=== PATIENT | female | born 1970 | race Caucasian/White ===

== ENCOUNTER 2016-12-16 16:34 | Emergency (ER) | payer MEDICAID ==
[~2016-12-16 16:34] MED LIST: CLEOCIN HCL300 MG PO; GLUCOPHAGE500 MG PO; HYDROCODONE-APA1 TAB PO; KEFLEX500 MG PO; LEVAQUIN 5500 MG/100 PO
[2016-12-16 17:49] LABS: BASOPHILS 0.4 % (0-2); EOSINOPHILS 1.1 % (0-7); HEMATOCRIT 42.6 % (36.0-48.0); HEMOGLOBIN 14.2 g/dL (12-16); IMMATURE GRANULOCYTES 0.3 % (0-5); LYMPHOCYTES 31.5 % (15-50); MCH 32.2 pg (26.0-34.0); MCHC 33.3 g/dL (31.0-37.0); MCV 96.6 fL (80.0-100.0); MONOCYTES 4.6 % (2-11); NEUTROPHILS 62.1 % (40-80); PLATELET COUNT 431 10x3/uL (130-400); RBC 4.41 10x6/uL (4.00-5.40)
[2016-12-16 17:56] LABS: INR 0.88 (0.85-1.17); PROTIME 11.8 SECONDS (11.6-15.0)
[2016-12-16 17:56] LABS: UDS - AMPHET NEGATIVE QUAL (NEGATIVE); UDS - BARB NEGATIVE QUAL (NEGATIVE); UDS - BENZO NEGATIVE QUAL (NEGATIVE); UDS - COCAINE NEGATIVE QUAL (NEGATIVE); UDS - OPIATE NEGATIVE QUAL (NEGATIVE); UDS - PCP NEGATIVE QUAL (NEGATIVE); UDS - THC NEGATIVE QUAL (NEGATIVE)
[2016-12-16 18:08] LABS: ALBUMIN 3.1 g/dL (3.4-5.0); ALKALINE PHOSPHATASE 210 U/L (46-116); ALT (SGPT) 303 U/L (10-68); BILIRUBIN - TOTAL 0.28 mg/dL (0.2-1.3); CARBON DIOXIDE 28.6 mmol/L (21.0-32.0); CHLORIDE - SERUM 95 mmol/L (98-107); CREATININE - SERUM 0.9 mg/dL (0.6-1.3); POTASSIUM - SERUM 4.3 mmol/L (3.5-5.1); PROTEIN - SERUM 7.9 g/dL (6.4-8.2); SODIUM 130 mmol/L (136-145); UREA NITROGEN 5 mg/dL (7-18); eGFR NON AFRICAN AMERICAN 72 mL/min (90-120)
[2016-12-16 18:16] LABS: CALC OSMOLALITY 285 mosm/kg (275-300); TROPONIN-I < 0.017 ng/mL (0.000-0.060)
[2016-12-16 18:21] LABS: APPEARANCE CLEAR (CLEAR); BILIRUBIN NEGATIVE (NEGATIVE); COLOR YELLOW (YELLOW); GLUCOSE 1000 mg/dL (NEGATIVE); KETONE NEGATIVE (NEGATIVE); NITRITE NEGATIVE (NEGATIVE); PROTEIN NEGATIVE (NEGATIVE); UROBILINOGEN NORMAL (NORMAL)
[2016-12-16 18:22] LABS: BACTERIA MODERATE /hpf (NONE SEEN); EPITHELIAL CELLS 0-5 /hpf (0-5); RED CELLS - URINE 0-5 /hpf (0-5)
[2016-12-16 18:25] LABS: GLUCOSE 611 mg/dL (74-106)
[2016-12-16 18:34] LABS: KETONE - SERUM NEGATIVE (NEGATIVE)
== END 2016-12-17 00:40 | disposition home or self-care (01) ==
LOC: D.ER 16:34
PROVIDERS: Emergency Medicine; Nurse Practitioner Family
DX: E11.65 Type 2 diabetes mellitus with hyperglycemia (principal); Z79.4 Long term (current) use of insulin; Z91.14 Patient's other noncompliance with medication regimen; E11.40 Type 2 diabetes mellitus with diabetic neuropathy, unspecified; R51 Headache

== ENCOUNTER 2017-01-04 13:26 | Inpatient (IN) | payer MEDICAID ==
[2017-01-04 15:58] LABS: HEMATOCRIT 41.9 % (36.0-48.0); HEMOGLOBIN 14.2 g/dL (12-16); MCH 32.5 pg (26.0-34.0); MCHC 33.9 g/dL (31.0-37.0); MCV 95.9 fL (80.0-100.0); MEAN PLATELET VOLUME 10.2 fL (7.4-10.4); PLATELET COUNT 562 10x3/uL (130-400); RBC 4.37 10x6/uL (4.00-5.40); RDW 12.7 % (11.5-14.5); WBC 22.1 10x3/uL (4.8-10.8)
[2017-01-04 16:26] LABS: ALBUMIN 2.6 g/dL (3.4-5.0); ANION GAP 15.3 mmol/L (8-16); BILIRUBIN - TOTAL 0.52 mg/dL (0.2-1.3); CALCIUM 9.4 mg/dL (8.5-10.1); CARBON DIOXIDE 26.7 mmol/L (21.0-32.0); CREATININE - SERUM 0.9 mg/dL (0.6-1.3); PROTEIN - SERUM 8.6 g/dL (6.4-8.2)
[2017-01-04 16:31] LABS: EOSINOPHILS 4 % (0-7); LYMPHOCYTES 32 % (15-50); MONOCYTES 2 % (2-11); NEUTROPHILS 62 % (40-80); PLATELET ESTIMATE INCREASED
[2017-01-04 20:00] VITALS: BP 137/86
--- NOTE | 2017-01-04 21:05 | NUR ---
RECIEVED PT TO FLOOR FROM ED VIA WHEELCHAIR. PT TRANSFERRED SELF TO BED. ALERT AND ORIENTED AND ABLE TO VERBALIZE NEEDS. IV IS PATENT AND SALINE LOC AT THIS TIME. PT IS AMBULATORY BUT WAS INSTRUCTED TO CALL FOR ANY ASSISTANCE NEEDED. DRESSING TO RIGHT ELBOW C/D/I. PT STATES PAIN IS 10/10. PT IS ORIENTED TO ROOM AND USE OF CALL LIGHT. NO NEEDS ARE VERBALIZED AT THIS TIME. WILL CONTINUE TO MONITOR. SIDE RAILS ARE UP X 1. BED IS IN LOWEST POSITION. CALL LIGHT IS WITHIN REACH.
--- NOTE | 2017-01-04 22:32 | NUR ---
ADMIT ASSESSMENT COMPLETED. FLUIDS HOOKED UP PER ORDER. PT RECIEVED 12 UNITS INSULIN PER SLIDING SCALE FOR DKIL=399. NO NEEDS ARE VOICED. WILL MONITOR. SIDE RAILS X 1. BED LOW. CALL LIGHT IN REACH.
[2017-01-04 23:57] VITALS: BP 133/76
[2017-01-05 00:30] VITALS: BP 133/76; BMI 24.8
[2017-01-05 04:00] VITALS: BP 122/69
[2017-01-05 08:15] VITALS: BP 112/76
[2017-01-05 10:33] LABS: BASOPHILS 0.6 % (0-2); EOSINOPHILS 3.5 % (0-7); HEMATOCRIT 36.7 % (36.0-48.0); IMMATURE GRANULOCYTES 0.4 % (0-5); LYMPHOCYTES 29.3 % (15-50); MCH 31.7 pg (26.0-34.0); MCHC 32.7 g/dL (31.0-37.0); MCV 96.8 fL (80.0-100.0); MONOCYTES 8.1 % (2-11); NEUTROPHILS 58.1 % (40-80); PLATELET COUNT 520 10x3/uL (130-400); RBC 3.79 10x6/uL (4.00-5.40)
[2017-01-05 10:38] LABS: CALC OSMOLALITY 288 mosm/kg (275-300); CALCIUM 8.7 mg/dL (8.5-10.1); CARBON DIOXIDE 30.3 mmol/L (21.0-32.0); CHLORIDE - SERUM 102 mmol/L (98-107); CREATININE - SERUM 0.7 mg/dL (0.6-1.3); POTASSIUM - SERUM 3.7 mmol/L (3.5-5.1); SODIUM 139 mmol/L (136-145); UREA NITROGEN 9 mg/dL (7-18); eGFR NON AFRICAN AMERICAN > 90 mL/min (90-120)
[2017-01-05 10:42] LABS: GLUCOSE 316 mg/dL (74-106)
[2017-01-05 10:57] VITALS: BMI 24.0
[2017-01-05 10:57] LABS: WBC 13.6 10x3/uL (4.8-10.8)
[2017-01-05 11:57] VITALS: BP 123/80
--- NOTE | 2017-01-05 12:01 | NUR ---
PT LYING IN BED WITH NO FAMILY AT SIDE DR HAS REMOVED DRESSING AND EXPOSED ABCESS DRESSING TO BE CHANGED AT PER THIS NURSE.
[2017-01-05 16:51] VITALS: BP 118/79
[2017-01-05 18:17] LABS: HEMOGLOBIN A1C 13.3 % (4.8-6.0)
--- NOTE | 2017-01-05 19:30 | NUR ---
RECIEVED SHIFT REPORT. PT IS LYING IN BED. ALERT AND ORIENTED AND ABLE TO VERBALIZE NEEDS. IV IS PATENT AND FLUIDS ARE RUNNING PER ORDER. PT IS AMBULATORY BUT WAS INSTRUCTED TO CALL FOR ANY ASSISTANCE NEEDED. DRESSING TO RIGHT ELBOW C/D/I. PT STATES PAIN IS 10/10. NO NEEDS ARE VERBALIZED AT THIS TIME. WILL CONTINUE TO MONITOR. SIDE RAILS ARE UP X 2. BED IS IN LOWEST POSITION. CALL LIGHT IS WITHIN REACH.
--- NOTE | 2017-01-05 20:43 | NUR ---
SHIFT ASSESSMENT COMPLETED. ANTIBIOTIC HUNG PER ORDER. PT RECIEVED 10 UNITS INSULIN PER SLIDING SCALE FOR QLPD=015. SNACK PROVIDED. NO NEEDS ARE VOICED. WILL MONITOR. SIDE RAILS X 2. BED LOW. CALL LIGHT IN REACH.
[2017-01-05 21:30] VITALS: BP 174/89
[2017-01-06 00:26] VITALS: BP 117/73
[2017-01-06 04:44] VITALS: BP 115/75
[2017-01-06 07:39] LABS: BASOPHILS 0.7 % (0-2); EOSINOPHILS 5.1 % (0-7); HEMATOCRIT 36.1 % (36.0-48.0); HEMOGLOBIN 11.5 g/dL (12-16); IMMATURE GRANULOCYTES 0.3 % (0-5); LYMPHOCYTES 39.2 % (15-50); MCH 31.3 pg (26.0-34.0); MCHC 31.9 g/dL (31.0-37.0); MCV 98.1 fL (80.0-100.0); MEAN PLATELET VOLUME 9.7 fL (7.4-10.4); MONOCYTES 7.6 % (2-11); NEUTROPHILS 47.1 % (40-80); PLATELET COUNT 512 10x3/uL (130-400); RBC 3.68 10x6/uL (4.00-5.40); RDW 12.9 % (11.5-14.5); WBC 11.8 10x3/uL (4.8-10.8)
[2017-01-06 07:52] LABS: ALBUMIN 1.9 g/dL (3.4-5.0); ALKALINE PHOSPHATASE 151 U/L (46-116); ALT (SGPT) 96 U/L (10-68); CALC OSMOLALITY 290 mosm/kg (275-300); CALCIUM 8.8 mg/dL (8.5-10.1); CARBON DIOXIDE 29.4 mmol/L (21.0-32.0); CHLORIDE - SERUM 104 mmol/L (98-107); CREATININE - SERUM 0.7 mg/dL (0.6-1.3); GLUCOSE 346 mg/dL (74-106); POTASSIUM - SERUM 3.7 mmol/L (3.5-5.1); PROTEIN - SERUM 6.4 g/dL (6.4-8.2); SODIUM 139 mmol/L (136-145); UREA NITROGEN 11 mg/dL (7-18); VANCOMYCIN - TROUGH 7.6 ug/mL (10.0-20.0); eGFR NON AFRICAN AMERICAN > 90 mL/min (90-120)
--- NOTE | 2017-01-06 07:54 | NUR ---
Patient Name: GILBERT VERA Admission Status: ER Accout number: [id number] Admission Date: 01-04-2017 : 1970 Admission Diagnosis: Attending: CHHAYA ALVARES Current LOS: 2 Anticipated DC Date: 01-08-2017 Planned Disposition: Home Primary Insurance: [place] PRIVATE OPTIONS [place] Discharge Planning Comments: CM MET WITH PATIENT REGARDING D/C NEEDS AND PLANS. PATIENT STATED SHE LIVES ALONE AND DOES NOT KNOW WHO WILL DRIVE HER HOME AT DISCHARGE AT THIS TIME. PATIENT STATED THERE ARE NO STEPS OR STAIRS AT HER HOME. PATIENT STATED SHE IS INDEPENDENT WITH HER CARE AND HAS A GLUCOMETER AT HOME AND CHECKS WHEN SHE FEELS LIKE IT -MOST OF THE TIME EVERY OTHER DAY. PATIENT DOES NOT HAVE A PCP AND USES [facility] [address]. PATIENT REFUSING HOME HEALTH AT THIS TIME. CM WILL CONTINUE TO FOLLOW PATIENT WITH D/C NEEDS AND PLANS. PCP NONE [facility] [address]- [phone] VERONICA GARDNER (FRIEND) [phone] Shoes Hand Sewer: Kristyn Pierce Is the patient Alert and Oriented? Yes 0 * How many steps to enter\exit or inside your home? 0 0 * PCP NONE 0 * Pharmacy [facility] [address] 0 * Preadmission Environment Home Alone 0 * ADLs Independent 0 * Equipment Glucometer 0 * List name and contact numbers for known caregivers / representatives who currently or will assist patient after discharge: VERONICA GARDNER (FRIEND) [phone] 0 * Community resources currently utilized None 0 * Additional services required to return to the preadmission environment? Yes 0 * Can the patient safely return to the preadmission environment? Yes 0 * Has this patient been hospitalized within the prior 30 days at any hospital? No 0 Grand Total: 0
[2017-01-06 08:06] VITALS: BP 128/69
--- NOTE | 2017-01-06 09:43 | NUR ---
PT VANCOMYCIN TROUGH WAS 7.6. GIVEN HER AGE AND GOOD RENAL FUNCTION I WILL BUMP THE DOSE UP TO 750 MG Q8H. WILL GET ANOTHER TROUGH TO VERIFY DOSING CHANGE 01/07 PRIOR TO THE 1600 DOSE.
--- NOTE | 2017-01-06 10:36 | NUR ---
IV started in left forearm, 22 gauge x 1 attempt for saline lock. Dominga Chamorro RN
[2017-01-06 12:27] VITALS: BP 160/86
[2017-01-06 13:37] LABS: HEMOGLOBIN A1C 13.6 % (4.8-6.0)
[2017-01-06 15:53] VITALS: BP 160/77
[2017-01-06 20:00] VITALS: BP 183/83
[2017-01-07] VITALS: BP 180/86
--- NOTE | 2017-01-07 02:00 | NUR ---
PT IN BED WITH NO DISTRESS. RESPIRATIONS EVEN AND UNLABORED. SIDE RAILS X 1. BED LOW. CALL LIGHT IN REACH.
[2017-01-07 05:41] LABS: BASOPHILS 0.7 % (0-2); EOSINOPHILS 4.3 % (0-7); HEMATOCRIT 38.3 % (36.0-48.0); HEMOGLOBIN 12.5 g/dL (12-16); IMMATURE GRANULOCYTES 0.4 % (0-5); LYMPHOCYTES 45.9 % (15-50); MCH 31.7 pg (26.0-34.0); MCHC 32.6 g/dL (31.0-37.0); MCV 97.2 fL (80.0-100.0); MEAN PLATELET VOLUME 9.6 fL (7.4-10.4); MONOCYTES 6.5 % (2-11); NEUTROPHILS 42.2 % (40-80); PLATELET COUNT 528 10x3/uL (130-400); RBC 3.94 10x6/uL (4.00-5.40); RDW 12.9 % (11.5-14.5); WBC 13.8 10x3/uL (4.8-10.8)
[2017-01-07 06:13] LABS: ALBUMIN 2.3 g/dL (3.4-5.0); ALKALINE PHOSPHATASE 159 U/L (46-116); BILIRUBIN - TOTAL 0.15 mg/dL (0.2-1.3); CALCIUM 8.7 mg/dL (8.5-10.1); CARBON DIOXIDE 29.3 mmol/L (21.0-32.0); CHLORIDE - SERUM 101 mmol/L (98-107); CREATININE - SERUM 0.6 mg/dL (0.6-1.3); PROTEIN - SERUM 6.9 g/dL (6.4-8.2); SODIUM 138 mmol/L (136-145); UREA NITROGEN 12 mg/dL (7-18); eGFR NON AFRICAN AMERICAN > 90 mL/min (90-120)
[2017-01-07 06:22] LABS: CALC OSMOLALITY 285 mosm/kg (275-300); GLUCOSE 286 mg/dL (74-106); POTASSIUM - SERUM 4.6 mmol/L (3.5-5.1)
[2017-01-07 06:23] LABS: ALT (SGPT) 147 U/L (10-68)
--- NOTE | 2017-01-07 07:53 | NUR ---
REC'D IN BED WITH EYES CLOSED EASILY AROUSED WHEN NAME IS CALLED. RESP EVEN AND UNLABORED WITH NO DISTRESS NOTED. CAN EXPRESS NEEDS AND WANTS. ASSESSMENT COMPLETED. WILL CONTINUE TO OBSERVE OR NEEDS. C/L IN REACH AT BEDSIDE.
--- NOTE | 2017-01-07 08:00 | NUR ---
RESTING WITHOUT SIGNS OF DISTRESS.CALL LIGHT IN REACH
[2017-01-07 08:16] VITALS: BP 174/93
[2017-01-07 12:33] VITALS: BP 183/82
--- NOTE | 2017-01-07 14:44 | NUR ---
PT OFF FLOOR TO OR AT THIS TIME VIA STRETCHER. NO C/O NOTED UPON DEPARTURE. C/L IN REACH AT BEDSIDE.
--- NOTE | 2017-01-07 15:10 | NUR ---
NUTRITION F/U PT CURRENTLY NPO FOR PROCEDURE. WILL PROVIDE DIET WHEN RESUMED, HONOR FOOD PREFERENCES. RD FOLLOWING
[2017-01-07 15:21] LABS: HCG SERUM NEGATIVE (NEGATIVE)
[2017-01-07 17:27] VITALS: BP 139/90
--- NOTE | 2017-01-07 17:31 | NUR ---
RETURN FROM RECOVERY TO ROOM 2240 AWAKE AND ALERT. RESP EVEN AND UNLABORED WITH NO DISTRESS NOTED HAS O2 IN USE VIA N/C @ 3 L/M. PT IS IN STABLE CONDITION UPON RETURN ASKING FOR DINNER TRAY AND WAS SITTING STRAIGHT UP IN BED. WILL CONTINUE TO OBSERVE FOR NEEDS. C/L IN REACH AT BEDSIDE.
--- NOTE | 2017-01-07 20:16 | NUR ---
PT NEEDS TO HAVE BLOOD DRAWN FOR VANC TROUGHS. NURA IN LAB UNABLE TO FIND SUITABLE VEIN FOR REDRAW. PT VERBALIZED DEPRESSED UNABLE TO GET OF OF ROOM. SAT AND TALKED TO PT A WHILE UNTIL PT CALM AND COMFORTABLE CONTINUE WITH PLAN OF CARE
--- NOTE | 2017-01-07 23:18 | NUR ---
PT COMPLAINED OF PAIN IN IV SITE, UNABLE OT FLUSH OF REDRAW, REASSESS PT'IV SIT SI SWOLLEN AND RED, PT NEEDS NEW IV. REFUSED TO HAVE AN IV RESTATRTED TONIGHT.STATED LAB UNABLE TO FIND A VEIN WANTED VASCULAR NURSE TO ACESS NEW SITE FOR IV
[2017-01-08] VITALS: BP 129/76
[2017-01-08 04:00] VITALS: BP 153/77
--- NOTE | 2017-01-08 04:57 | NUR ---
ASSESSED, PT IS ASLEEP WITH O2 ORDERED AND EASY RESPIRATIONS NOTED. THE BED IS LOW, RAILS UP X'S 2 WITH THE CALL LIGHT AT HAND.
[2017-01-08 06:57] LABS: BASOPHILS 0.3 % (0-2); EOSINOPHILS 2.9 % (0-7); HEMATOCRIT 37.1 % (36.0-48.0); HEMOGLOBIN 11.9 g/dL (12-16); IMMATURE GRANULOCYTES 0.3 % (0-5); LYMPHOCYTES 35.5 % (15-50); MCH 31.5 pg (26.0-34.0); MCHC 32.1 g/dL (31.0-37.0); MCV 98.1 fL (80.0-100.0); MONOCYTES 6.2 % (2-11); NEUTROPHILS 54.8 % (40-80); PLATELET COUNT 546 10x3/uL (130-400); RBC 3.78 10x6/uL (4.00-5.40); WBC 14.9 10x3/uL (4.8-10.8)
--- NOTE | 2017-01-08 07:00 | NUR ---
PATIENT IN BED RESTING QUIETLY. IV INTACT. CALL LIGHT WITHIN REACH.
[2017-01-08 07:24] LABS: ALBUMIN 2.2 g/dL (3.4-5.0); ALKALINE PHOSPHATASE 138 U/L (46-116); ALT (SGPT) 143 U/L (10-68); CALC OSMOLALITY 284 mosm/kg (275-300); CALCIUM 9.1 mg/dL (8.5-10.1); CARBON DIOXIDE 32.5 mmol/L (21.0-32.0); CHLORIDE - SERUM 101 mmol/L (98-107); CREATININE - SERUM 0.7 mg/dL (0.6-1.3); GLUCOSE 314 mg/dL (74-106); POTASSIUM - SERUM 4.5 mmol/L (3.5-5.1); PROTEIN - SERUM 6.8 g/dL (6.4-8.2); SODIUM 137 mmol/L (136-145); UREA NITROGEN 9 mg/dL (7-18); eGFR NON AFRICAN AMERICAN > 90 mL/min (90-120)
[2017-01-08 08:00] VITALS: BP 140/81
--- NOTE | 2017-01-08 12:00 | NUR ---
PATIENT SITTING UP IN BED. RECIEVED 2 MG DILAUDID PO AND SCHEDULED MEDS. NO COMPLAINTS. CALL LIGHT WITHIN REACH.
[2017-01-08 12:46] VITALS: BP 147/83
[2017-01-08 16:13] VITALS: BP 131/78
--- NOTE | 2017-01-08 17:50 | NUR ---
PATIENT RECIEVED MORPHINE 3MG IVP SLOWLY OVER 3 MINUTES AND SCHEDULED MEDS. NO COMPLAINTS. DRESSING INTACT. CALL LIGHT WITHIN REACH.
[2017-01-08 20:00] VITALS: BP 158/79
--- NOTE | 2017-01-08 20:11 | NUR ---
AWAKE,ALERT,WATCHING TV. AIDAN WRAP INTACT TO RIGHT ARM INTACT WITHOUT DRAINAGE NOTED. EDEMA NOTED TO LOWER ARM/HAND. IV INFUSING TO LEFT ARM WITHOUT REDNESS OR EDEMA NOTED. DILAUDID 2M PO GIVEN FOR COMPLAINTS OF PAIN TO RIGHT ARM. CL IN REACH.
--- NOTE | 2017-01-09 03:00 | NUR ---
PT RESTING QUIETLY, EYES CLOSED. RESP EVEN, UNLABORED. NO DISTRESS NOTED. CONTINUE WALL STEAMER'S PLAN OF CARE.
[2017-01-09 04:00] VITALS: BP 151/72
--- NOTE | 2017-01-09 04:50 | NUR ---
LYING QUIETLY. NO DISTRESS NOTED. CL IN REACH
[2017-01-09 06:14] LABS: BASOPHILS 0.5 % (0-2); EOSINOPHILS 4.5 % (0-7); HEMATOCRIT 34.9 % (36.0-48.0); HEMOGLOBIN 11.3 g/dL (12-16); IMMATURE GRANULOCYTES 0.4 % (0-5); LYMPHOCYTES 40.7 % (15-50); MCH 31.7 pg (26.0-34.0); MCHC 32.4 g/dL (31.0-37.0); MCV 97.8 fL (80.0-100.0); MEAN PLATELET VOLUME 10.1 fL (7.4-10.4); MONOCYTES 7.6 % (2-11); NEUTROPHILS 46.3 % (40-80); PLATELET COUNT 524 10x3/uL (130-400); RBC 3.57 10x6/uL (4.00-5.40); RDW 13.1 % (11.5-14.5); WBC 13.2 10x3/uL (4.8-10.8)
[2017-01-09 06:36] LABS: ALBUMIN 2.1 g/dL (3.4-5.0); ALKALINE PHOSPHATASE 153 U/L (46-116); ALT (SGPT) 160 U/L (10-68); CALC OSMOLALITY 281 mosm/kg (275-300); CARBON DIOXIDE 29.9 mmol/L (21.0-32.0); CHLORIDE - SERUM 99 mmol/L (98-107); CREATININE - SERUM 0.7 mg/dL (0.6-1.3); GLUCOSE 362 mg/dL (74-106); POTASSIUM - SERUM 4.4 mmol/L (3.5-5.1); PROTEIN - SERUM 6.7 g/dL (6.4-8.2); SODIUM 134 mmol/L (136-145); UREA NITROGEN 10 mg/dL (7-18); eGFR NON AFRICAN AMERICAN > 90 mL/min (90-120)
--- NOTE | 2017-01-09 07:00 | NUR ---
REPORT RECIEVED ASSUMED CARE. PATIENT IN BED WITH IV INTACT. EYES CLOSED RESTING QUIETLY. CALL LIGHT WITHIN REACH.
[2017-01-09 09:38] VITALS: BP 144/75
[2017-01-09 11:52] VITALS: BP 169/79
--- NOTE | 2017-01-09 13:46 | NUR ---
DILAUDID 2 MG PO PER C/O PAIN TO RIGHT ARM OF 10+.
[2017-01-09 16:41] VITALS: BP 183/87
--- NOTE | 2017-01-09 17:00 | NUR ---
DRESSING CHANGED TO RIGHT ARM ORDERED. PATIENT TOLERATED WITH A LOT OF PAIN. RECIEVED MORPHINE BEFORE. IV INTACT AT THIS TIME. CALL LIGHTW ITHIN REACH. PATIENT SITTING UP READY TO EAT DINNER AT THIS TIME.
--- NOTE | 2017-01-09 19:15 | NUR ---
RECEIVED CARE FROM DAY NURSE. PT SITTING UP IN BED. REPORTS NO NEEDS AT THIS TIME. CALL LIGHT AT SIDE. IV INFUSING TO PATENT LEFT FA.
[2017-01-09 20:00] VITALS: BP 174/95
[2017-01-10] VITALS: BP 144/77
--- NOTE | 2017-01-10 03:55 | NUR ---
PATIENT RESTING IN BED WITH DIGNA STEVE AT BEDSIDE. BED IN LOWEST POSITION AND CALL LIGHT WITHIN REACH. ENCOURAGED THE PT TO CALL IF SHE HAS NEEDS.
[2017-01-10 07:05] LABS: BASOPHILS 0.5 % (0-2); HEMATOCRIT 35.4 % (36.0-48.0); HEMOGLOBIN 11.4 g/dL (12-16); IMMATURE GRANULOCYTES 0.5 % (0-5); LYMPHOCYTES 38.3 % (15-50); MCH 31.2 pg (26.0-34.0); MCHC 32.2 g/dL (31.0-37.0); MEAN PLATELET VOLUME 9.9 fL (7.4-10.4); MONOCYTES 7.4 % (2-11); NEUTROPHILS 48.3 % (40-80); PLATELET COUNT 509 10x3/uL (130-400); RBC 3.65 10x6/uL (4.00-5.40); RDW 13.1 % (11.5-14.5); WBC 11.8 10x3/uL (4.8-10.8)
[2017-01-10 07:12] LABS: ALBUMIN 2.3 g/dL (3.4-5.0); ALKALINE PHOSPHATASE 167 U/L (46-116); ALT (SGPT) 185 U/L (10-68); BILIRUBIN - TOTAL 0.11 mg/dL (0.2-1.3); CALC OSMOLALITY 284 mosm/kg (275-300); CALCIUM 9.2 mg/dL (8.5-10.1); CHLORIDE - SERUM 102 mmol/L (98-107); CREATININE - SERUM 0.7 mg/dL (0.6-1.3); POTASSIUM - SERUM 4.8 mmol/L (3.5-5.1); PROTEIN - SERUM 6.9 g/dL (6.4-8.2); SODIUM 137 mmol/L (136-145); UREA NITROGEN 11 mg/dL (7-18); eGFR NON AFRICAN AMERICAN > 90 mL/min (90-120)
[2017-01-10 07:13] LABS: GLUCOSE 314 mg/dL (74-106)
[2017-01-10 09:05] VITALS: BP 152/72
--- NOTE | 2017-01-10 09:32 | OP ---
PATIENT NAME: GILBERT VERA MEDICAL RECORD: [id number] :74 LOCATION:D[id number] ADMISSION DATE:01/04/17 SURGEON: CORY FLETCHER MD DATE OF OPERATION: 01/07/2017 PREOPERATIVE DIAGNOSIS: Antecubital abscess of the right elbow. POSTOPERATIVE DIAGNOSIS: Antecubital abscess of the right elbow. PROCEDURES: Excisional debridement of purulent material including skin, subcutaneous tissue; portions of fat, fascia, muscle, and bone, less than 20 cm in total. SURGEON: Cory Fletcher MD ANESTHESIA: General. INTRAOPERATIVE COMPLICATIONS: None. SUMMARY OF PATHOLOGIC FINDINGS: The abscess not only spread out in a subcuticular fashion, but it spread down to the level just to, but not including the joint. This required both a scalpel, rongeur as well as curettage debridement of the bone periosteum. OPERATIVE SUMMARY IN DETAIL: After obtaining the appropriate preoperative orthopedic surgery consent as well as anesthetic consultation, evaluation, and clearance, the patient was brought to the operating room and placed on the operating table in supine position. After general laryngeal mask was administered, a tourniquet was placed about the proximal aspect of the right upper extremity. The right upper extremity was then prepped and draped in the routine sterile fashion. The arm was elevated, not exsanguinated, tourniquet was inflated. Dissection was carried out first down into the abscess and purulence was immediately noted. The small open wound was elongated, both proximally and distally for better exposure of the antecubital fossa. A very gentle dissection was carried out. One small vein was high ligated and tied and then copious irrigation followed with rongeur curettage and scalpel excision of all debridement was carried out. Cultures had already been taken. Having completed this, the wound was packed with 1-inch iodoform gauze. Sterile dressings were applied. The patient was awakened and taken to the recovery room in stable condition. All final needle and sponge counts were correct. TRANSINT:[id number] Voice Confirmation ID: [id number] DOCUMENT ID: [id number] CORY FLETCHER MD at 0932 CC: [id number] DICTATION DATE: 01/08/17 170 STUD BEEF CATTLE FARMER: 01/08/172032 ADM IN [facility] [address] [place] [address]
[2017-01-10 12:19] VITALS: BP 173/80
[2017-01-10 16:42] VITALS: BP 161/71
--- NOTE | 2017-01-10 18:23 | NUR ---
PATIENT IN BED WITH IV INTACT. NO COMPLAINTS AT THIS TIME. RECIEVED PAIN MEDS EARLIER. WILL DO DRESSING CHANGE WHEN PATIENT ALLOWS ME TO. CALL LIGHT WITHIN REACH.
--- NOTE | 2017-01-10 19:15 | NUR ---
RECEIVED CARE FROM DAY NURSE. PT SITTING ON SIDE OF BED. TEARFUL ABOUT PERSONAL ISSUES. NO NEEDS VOICED AT THIS TIME. CALL LIGHT AT SIDE. IV INFUSING PER ORDER.
[2017-01-10 20:00] VITALS: BP 172/74
[2017-01-11 04:00] VITALS: BP 151/72
--- NOTE | 2017-01-11 08:00 | NUR ---
PT ASSESSMENT COMPLETE AWAKE AND ALERT ORINETED PT HAS DRESSING TO RIGHT ELBOW NOTED TO BE INTACT AND CLEAN. PAIN MEDS PER REQUEST AND ORDER.
[2017-01-11 08:28] VITALS: BP 145/66
[2017-01-11 09:22] LABS: HEMATOCRIT 38.7 % (36.0-48.0); HEMOGLOBIN 12.6 g/dL (12-16); LYMPHOCYTES 42.9 % (15-50); MCH 31.4 pg (26.0-34.0); MCHC 32.6 g/dL (31.0-37.0); MCV 96.5 fL (80.0-100.0); MEAN PLATELET VOLUME 9.3 fL (7.4-10.4); NEUTROPHILS 45.6 % (40-80); PLATELET COUNT 482 10x3/uL (130-400); RBC 4.01 10x6/uL (4.00-5.40); RDW 13.3 % (11.5-14.5); WBC 12.2 10x3/uL (4.8-10.8)
[2017-01-11] MEDS ORDERED: GLUCOPHAGE500 MG PO (09:43)
[2017-01-11] MEDS ORDERED: FLORAJEN3 CAPS460 MG PO (09:44)
[2017-01-11] MEDS ORDERED: GLIMEPIRIDE2 MG PO (09:44)
[2017-01-11 09:45] LABS: ALBUMIN 2.6 g/dL (3.4-5.0); ALKALINE PHOSPHATASE 180 U/L (46-116); ALT (SGPT) 255 U/L (10-68); BILIRUBIN - TOTAL 0.17 mg/dL (0.2-1.3); CALC OSMOLALITY 284 mosm/kg (275-300); CALCIUM 9.3 mg/dL (8.5-10.1); CARBON DIOXIDE 29.5 mmol/L (21.0-32.0); CHLORIDE - SERUM 102 mmol/L (98-107); CREATININE - SERUM 0.6 mg/dL (0.6-1.3); GLUCOSE 194 mg/dL (74-106); POTASSIUM - SERUM 4.1 mmol/L (3.5-5.1); PROTEIN - SERUM 7.5 g/dL (6.4-8.2); SODIUM 140 mmol/L (136-145); UREA NITROGEN 14 mg/dL (7-18); VANCOMYCIN - TROUGH 25.1 ug/mL (10.0-20.0); eGFR NON AFRICAN AMERICAN > 90 mL/min (90-120)
[2017-01-11] MEDS ORDERED: AMPICILLIN TRI500 MG PO (09:46)
[2017-01-11] MEDS ORDERED: DILAUDID2 MG PO (09:47)
--- NOTE | 2017-01-11 10:36 | NUR ---
CM REASSESSMENT NOTE: PATIENT IS TRYING TO FIND A RIDE HOME TODAY/ CM OFFEERED PATIENT A TAXI TO RETURN HOME. PATIENT STATED SHE WILL GO BACK TO [facility] AND IT IS SAFE. PATIENT SIGNED THE ED FORM WITH MASOOD PONCE 1ST, AND LEEANN PONCE 2ND.
--- NOTE | 2017-01-11 12:59 | NUR ---
CM REASSESSMENT NOTE: PATIENT IS DISCHARGING TONIGHT AROUND 8PM/FRIEND TO PICK HER UP. IF PATIENT HAS NO WAY HOME, NURSING STAFF CAN CALL A CAB FOR PATIENT TO BE TRANSPORTED HOME HERE IN [place]. [facility] [address] HAS BEEN NOTIFIED OF DISCHARGE.
--- NOTE | 2017-01-11 17:43 | NUR ---
PT TO BE DISCHARGED TONIGHT AFTER ABT INFUSION COMPLETE PT AWAKE AND ALERT ORIENTED X 3 HAS DRESSING INTACT TO RIGHT ELBOW PAIN CONTROLLED AT THIS TIME.
--- NOTE | 2017-01-11 20:10 | NUR ---
REC'D LYING IN BED. ALERT AND ORIENTED X4. REPORTED PAIN 10/10 IS WANTING PAIN MEDICATION. WILL ADMIN PRESCRIBED. NO DISTRESS NOTED. IS TO BE DISCHARGED. REMOVED IV TO THE LEFT ARM CATHETER STILL INTACT. GAVE DISCHARGE INSTRUCTIONS ON HOME HEALTH, HER FOLLOW UP APPT WITH DR. FLETCHER ON 01/18/17 AT 1300. PATIENT STATED "IM NOT GOING BECAUSE I DONT LIKE HIM OR HIS NURSE JM". GAVE HER PRESCRIBED AND EDUCATED ON HOW AND WHEN TO TAKE. VERBALIZED UNDERSTANDING. WILL CALL Namely TO COME AND FITTING ROOM OPERATOR.
--- NOTE | 2017-01-11 20:18 | NUR ---
IS WANTING TO WALK OUT HERSELF SO THAT SHE CAN SMOKE A CIG. INFROMED HER THAT I COULD TAKE HER DOWN BY WHEELCHAIR AND SHE REFUSED.
[2017-01-12 06:14] LABS: HEPATITIS C ANTIBODY >11.0 (0.0-0.9)
== END 2017-01-11 20:30 | disposition home health service (06) | DRG 982 ==
LOC: D.ER 13:26 → D.MS 19:18
PROVIDERS: Anesthesiology; Family Medicine; Orthopaedic Surgery; ADMIT Family Medicine
PROC: 0PBF0ZZ Excision of Right Humeral Shaft, Open Approach (ICD-10-PCS; principal; 2017-01-07 15:00)
DX: L03.113 Cellulitis of right upper limb (principal); F17.203 Nicotine dependence unspecified, with withdrawal; E11.65 Type 2 diabetes mellitus with hyperglycemia; L02.413 Cutaneous abscess of right upper limb; I08.1 Rheumatic disorders of both mitral and tricuspid valves

== ENCOUNTER 2017-08-02 20:15 | Emergency (ER) | payer MEDICAID ==
[~2017-08-02 20:15] MED LIST changes: +AMPICILLIN TRI500 MG PO; +DILAUDID2 MG PO; +FLORAJEN3 CAPS460 MG PO; +GLIMEPIRIDE2 MG PO
[2017-08-02 21:26] LABS: HEMATOCRIT 39.3 % (36.0-48.0); HEMOGLOBIN 13.6 g/dL (12-16); MCH 31.9 pg (26.0-34.0); MCHC 34.6 g/dL (31.0-37.0); MEAN PLATELET VOLUME 10.6 fL (7.4-10.4); PLATELET COUNT 345 10x3/uL (130-400); RBC 4.27 10x6/uL (4.00-5.40); RDW 12.9 % (11.5-14.5); WBC 13.6 10x3/uL (4.8-10.8)
[2017-08-02 21:38] LABS: APPEARANCE CLEAR (CLEAR); BILIRUBIN NEGATIVE (NEGATIVE); COLOR STRAW (YELLOW); GLUCOSE 1000 mg/dL (NEGATIVE); KETONE NEGATIVE (NEGATIVE); NITRITE NEGATIVE (NEGATIVE); PROTEIN NEGATIVE (NEGATIVE); UROBILINOGEN NORMAL (NORMAL)
[2017-08-02 21:39] LABS: ALBUMIN 2.8 g/dL (3.4-5.0); ALKALINE PHOSPHATASE 325 U/L (46-116); BILIRUBIN - TOTAL 0.36 mg/dL (0.2-1.3); CALCIUM 8.6 mg/dL (8.5-10.1); CARBON DIOXIDE 28.1 mmol/L (21.0-32.0); CHLORIDE - SERUM 92 mmol/L (98-107); CREATININE - SERUM 1.2 mg/dL (0.6-1.3); POTASSIUM - SERUM 3.8 mmol/L (3.5-5.1); PROTEIN - SERUM 7.6 g/dL (6.4-8.2); SODIUM 130 mmol/L (136-145); UREA NITROGEN 18 mg/dL (7-18); eGFR NON AFRICAN AMERICAN 51 mL/min (90-120)
[2017-08-02 21:40] LABS: ALT (SGPT) 404 U/L (10-68); CALC OSMOLALITY 293 mosm/kg (275-300)
[2017-08-02 21:41] LABS: BACTERIA FEW /hpf (NONE SEEN); EPITHELIAL CELLS 0-5 /hpf (0-5)
[2017-08-02 21:44] LABS: HCG URINE NEGATIVE (NEGATIVE)
[2017-08-02 21:45] LABS: GLUCOSE 652 mg/dL (74-106); KETONE - SERUM NEGATIVE (NEGATIVE)
[2017-08-02 21:55] LABS: BASOPHILS 1 % (0-2); EOSINOPHILS 1 % (0-7); LYMPHOCYTES 43 % (15-50); NEUTROPHILS 52 % (40-80)
[2017-08-02 21:56] LABS: PLATELET ESTIMATE NORMAL
[2017-08-02 21:57] LABS: TEAR DROP CELLS 1+
[2017-08-02 21:58] LABS: ROULEAUX OCC
[2017-08-04 11:21] LABS: HEPATITIS C ANTIBODY >11.0 (0.0-0.9)
== END 2017-08-03 01:17 | disposition home or self-care (01) ==
LOC: D.ER 20:15
PROVIDERS: Family Medicine
DX: E11.65 Type 2 diabetes mellitus with hyperglycemia (principal); Z79.4 Long term (current) use of insulin; K21.9 Gastro-esophageal reflux disease without esophagitis; I10 Essential (primary) hypertension; J44.9 Chronic obstructive pulmonary disease, unspecified

== ENCOUNTER 2018-03-16 12:38 | Emergency (ER) | payer SELFPAY ==
[~2018-03-16] VITALS: Ht 160 cm; Wt 54.5 kg
[2018-03-16 12:49] VITALS: Ht 160 cm; Wt 54.5 kg
[2018-03-16 13:48] LABS: ALBUMIN 2.6 g/dL (3.4-5.0); BILIRUBIN - TOTAL 0.14 mg/dL (0.2-1.3); CALCIUM 8.8 mg/dL (8.5-10.1); CARBON DIOXIDE 29.3 mmol/L (21.0-32.0); CREATININE - SERUM 0.9 mg/dL (0.6-1.3); POTASSIUM - SERUM 4.3 mmol/L (3.5-5.1); PROTEIN - SERUM 8.2 g/dL (6.4-8.2)
[2018-03-16 13:54] LABS: BASOPHILS 0.6 % (0-2); EOSINOPHILS 1.6 % (0-7); HEMATOCRIT 40.4 % (36.0-48.0); HEMOGLOBIN 13.5 g/dL (12-16); IMMATURE GRANULOCYTES 0.5 % (0-5); LYMPHOCYTES 29.5 % (15-50); MCH 31.7 pg (26.0-34.0); MCHC 33.4 g/dL (31.0-37.0); MCV 94.8 fL (80.0-100.0); MEAN PLATELET VOLUME 10.5 fL (7.4-10.4); MONOCYTES 4.1 % (2-11); NEUTROPHILS 63.7 % (40-80); RBC 4.26 10x6/uL (4.00-5.40); WBC 19.8 10x3/uL (4.8-10.8)
[2018-03-16 13:55] LABS: PLATELET COUNT 458 10x3/uL (130-400)
[2018-03-16 14:17] LABS: APPEARANCE CLEAR (CLEAR); BILIRUBIN NEGATIVE (NEGATIVE); COLOR YELLOW (YELLOW); GLUCOSE 1000 mg/dL (NEGATIVE); KETONE NEGATIVE (NEGATIVE); NITRITE NEGATIVE (NEGATIVE); PROTEIN 1+ mg/dL (NEGATIVE); SPECIFIC GRAVITY 1.015 (1.005-1.020); UROBILINOGEN NORMAL (NORMAL)
[2018-03-16 14:18] LABS: BACTERIA MODERATE /hpf (NONE SEEN); EPITHELIAL CELLS 0-5 /hpf (0-5); MUCUS <1+ /lpf (NONE SEEN); RED CELLS - URINE 0-5 /hpf (0-5)
[2018-03-16] MEDS ORDERED: MACROBID100 MG PO (16:34)
[2018-03-16] MEDS ORDERED: GLUCOPHAGE500 MG PO (16:34)
[2018-03-16 17:45] VITALS: BP 109/76
[2018-03-23 13:21] LABS: AEROBE ID Final report (()); RESULT 1 Escherichia coli (())
== END 2018-03-16 17:40 | disposition home or self-care (01) ==
LOC: D.ER 12:38
PROVIDERS: Family Medicine
DX: E11.65 Type 2 diabetes mellitus with hyperglycemia (principal); R51 Headache; Z59.0 Homelessness; R05 Cough; H53.123 Transient visual loss, bilateral; F17.200 Nicotine dependence, unspecified, uncomplicated

== ENCOUNTER 2018-09-15 11:57 | Inpatient (IN) | payer MEDICAID ==
[~2018-09-15] VITALS: Ht 160 cm; Wt 48.6 kg
[2018-09-15] VITALS (8 sets, daily range): BP systolic 100–144; BP diastolic 58–86; BMI 23.0
[~2018-09-15 11:57] MED LIST changes: +MACROBID100 MG PO
--- NOTE | 2018-09-15 12:20 | NUR ---
URINE SPECIMEN OBTAINED, LABELED AT BS AND SENT TO LAB
--- NOTE | 2018-09-15 12:23 | NUR ---
FSBS PERFORMED= HI. NOTIFIED. LABS DRAWN PER SALES ENGAGEMENT EXECUTIVE
[2018-09-15 12:25] LABS: BASOPHILS 0.5 % (0-2); EOSINOPHILS 1.5 % (0-7); HEMOGLOBIN 13.2 g/dL (12-16); IMMATURE GRANULOCYTES 0.2 % (0-5); LYMPHOCYTES 44.3 % (15-50); MCH 31.8 pg (26.0-34.0); MCHC 33.8 g/dL (31.0-37.0); MEAN PLATELET VOLUME 10.2 fL (7.4-10.4); MONOCYTES 4.5 % (2-11); PLATELET COUNT 388 10x3/uL (130-400); RBC 4.15 10x6/uL (4.00-5.40); RDW 12.5 % (11.5-14.5); WBC 14.8 10x3/uL (4.8-10.8)
[2018-09-15 12:48] LABS: ALKALINE PHOSPHATASE 410 U/L (46-116); ALT (SGPT) 316 U/L (10-68); AMYLASE - SERUM 67 U/L (25-115); BILIRUBIN - TOTAL 0.23 mg/dL (0.2-1.3); CALCIUM 8.9 mg/dL (8.5-10.1); CARBON DIOXIDE 31.2 mmol/L (21.0-32.0); CHLORIDE - SERUM 88 mmol/L (98-107); LIPASE 1168 U/L (73-393); POTASSIUM - SERUM 4.3 mmol/L (3.5-5.1); PROTEIN - SERUM 7.9 g/dL (6.4-8.2); SODIUM 121 mmol/L (136-145); UREA NITROGEN 22 mg/dL (7-18); eGFR NON AFRICAN AMERICAN 63 mL/min (90-120)
[2018-09-15 12:49] LABS: APPEARANCE HAZY (CLEAR); BILIRUBIN NEGATIVE (NEGATIVE); CALC OSMOLALITY 282 mosm/kg (275-300); COLOR YELLOW (YELLOW); GLUCOSE 500 mg/dL (NEGATIVE); KETONE NEGATIVE (NEGATIVE); NITRITE NEGATIVE (NEGATIVE); PROTEIN NEGATIVE (NEGATIVE); TROPONIN-I < 0.017 ng/mL (0.000-0.060); UROBILINOGEN NORMAL (NORMAL)
[2018-09-15 12:52] LABS: BACTERIA FEW /hpf (NONE SEEN); EPITHELIAL CELLS 0-5 /hpf (0-5); RED CELLS - URINE RARE /hpf (0-5); YEAST <1+ /hpf (NONE SEEN)
[2018-09-15 12:57] LABS: GLUCOSE 745 mg/dL (74-106)
--- NOTE | 2018-09-15 16:19 | NUR ---
FSBS= 323 MG/DL
--- NOTE | 2018-09-15 16:50 | NUR ---
REPORT CALLED TO NEENA PANG BY SBAR FORMAT
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
--- NOTE | 2018-09-15 17:10 | NUR ---
TRANSPORTED TO ROOM #2134 VIA . CONDITION STABLE
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
[2018-09-15 19:13] LABS: CKMB 2.2 U/L (0.0-3.6); CREATINE KINASE 53 UL (21-215)
--- NOTE | 2018-09-15 20:11 | NUR ---
REPORT RECIEVED AND ROUNDING COMPLETE. PATIENT LAYING IN BED IN SUPINE POSITION. PATIENT HAD EYES CLOSED WHEN I ENETERED ROOM BUT AROUSED QUICKLY. PATIENT STATED HER PAIN IS STILL A 7 OUT OF 10 AFTER HER MORPHINE DOSE. HUMAIRA HAS A LEFT FOREARM WITH NS @ 50, NO S/SX OF INFILTRATION OR INFECTION. PATIENT IS SHOWING NO S/SX OF DISTRESS AT THIS TIME. CALL LIGHT WITHIN REACH AND BED IN LOWEST POSITION.
[2018-09-16 01:15] LABS: CKMB 1.7 U/L (0.0-3.6); CREATINE KINASE 40 UL (21-215); TROPONIN-I 0.022 ng/mL (0.000-0.060)
--- NOTE | 2018-09-16 03:20 | NUR ---
I have reviewed this patient and I concur with the Shift Assessment completed by the Licensed Practical Nurse today this shift.
[2018-09-16 04:00] VITALS: BP 100/70
[2018-09-16 06:14] LABS: HEMATOCRIT 36.2 % (36.0-48.0); HEMOGLOBIN 12.2 g/dL (12-16); MCHC 33.7 g/dL (31.0-37.0); MCV 92.1 fL (80.0-100.0); MEAN PLATELET VOLUME 10.4 fL (7.4-10.4); PLATELET COUNT 336 10x3/uL (130-400); RBC 3.93 10x6/uL (4.00-5.40); RDW 12.9 % (11.5-14.5)
[2018-09-16 06:59] LABS: ALBUMIN 2.3 g/dL (3.4-5.0); ALKALINE PHOSPHATASE 199 U/L (46-116); ALT (SGPT) 241 U/L (10-68); BILIRUBIN - TOTAL 0.23 mg/dL (0.2-1.3); CALCIUM 8.5 mg/dL (8.5-10.1); CARBON DIOXIDE 28.5 mmol/L (21.0-32.0); CHLORIDE - SERUM 104 mmol/L (98-107); CHOL - HDL RATIO 11.5 ratio (2.3-4.1); CHOLESTEROL, TOTAL 173 mg/dL (0-200); CKMB 1.8 U/L (0.0-3.6); CREATINE KINASE 34 UL (21-215); HDL CHOLESTEROL 15 mg/dL (32-96); LDL CHOLESTEROL 82 mg/dL (0-100); LDL-HDL RATIO 5.5 ratio (1.5-3.5); LIPASE 233 U/L (73-393); MAGNESIUM - SERUM 1.8 mg/dL (1.8-2.4); PHOSPHOROUS 3.3 mg/dL (2.5-4.9); PROTEIN - SERUM 6.4 g/dL (6.4-8.2); SODIUM 137 mmol/L (136-145); TRIGLYCERIDE 380 mg/dL (30-200); TROPONIN-I 0.022 ng/mL (0.000-0.060)
[2018-09-16 07:00] LABS: AMYLASE - SERUM 34 U/L (25-115); CALC OSMOLALITY 282 mosm/kg (275-300); CREATININE - SERUM 0.6 mg/dL (0.6-1.3); GLUCOSE 278 mg/dL (74-106); UREA NITROGEN 11 mg/dL (7-18); eGFR NON AFRICAN AMERICAN > 90 mL/min (90-120)
--- NOTE | 2018-09-16 07:00 | NUR ---
INITIAL ROUNDING, THE PATIENT IS SLEEPY, WAKES EASY. REPORTS PAIN OF 10/10 IN THE ABD AREA. UROLOGIC SURGEON NURSE TO GIVE PAIN MED AT THIS TIME. CALL LIGHT IN REACH.
[2018-09-16 08:05] VITALS: BP 102/62
[2018-09-16 09:39] LABS: UDS - AMPHET NEGATIVE QUAL (NEGATIVE); UDS - BARB NEGATIVE QUAL (NEGATIVE); UDS - BENZO NEGATIVE QUAL (NEGATIVE); UDS - COCAINE NEGATIVE QUAL (NEGATIVE); UDS - OPIATE POSITIVE QUAL (NEGATIVE); UDS - PCP NEGATIVE QUAL (NEGATIVE); UDS - THC NEGATIVE QUAL (NEGATIVE)
[2018-09-16 09:59] LABS: EOSINOPHILS 4 % (0-7); LYMPHOCYTES 37 % (15-50); MONOCYTES 13 % (2-11); NEUTROPHILS 41 % (40-80); PLATELET ESTIMATE NORMAL
[2018-09-16 10:38] LABS: APPEARANCE SL CLDY (CLEAR); BACTERIA MODERATE /hpf (NONE SEEN); BILIRUBIN NEGATIVE (NEGATIVE); COLOR YELLOW (YELLOW); EPITHELIAL CELLS 0-5 /hpf (0-5); GLUCOSE 1000 mg/dL (NEGATIVE); KETONE NEGATIVE (NEGATIVE); NITRITE NEGATIVE (NEGATIVE); PROTEIN 1+ mg/dL (NEGATIVE); RED CELLS - URINE 0-5 /hpf (0-5); SPECIFIC GRAVITY 1.015 (1.005-1.020); UROBILINOGEN NORMAL (NORMAL)
--- NOTE | 2018-09-16 11:16 | NUR ---
REFUSED SCD'S PER SYLVIA/JAYLEN
[2018-09-16 14:57] VITALS: Ht 160 cm; Wt 48.6 kg
[2018-09-16 16:25] VITALS: BP 100/68
--- NOTE | 2018-09-16 19:30 | NUR ---
EVENING ROUNDS MADE. PT SITTING UP IN BED RESTING. C/O PAIN IN R ABD SIDE. INFORMED PT SHE COULDNT HAVE PAIN MEDICINCE FOR ANOTHER HOUR. PT AGREED. NO FURTHER CONCERNS AT THIS TIME. FALL PRECAUTIONS IN PLACE. BED LOWERED AND LOCKED. CL IN REACH. WILL CTM.
[2018-09-16 20:00] VITALS: BP 114/73
--- NOTE | 2018-09-16 20:00 | NUR ---
VITALS STABLE. PT TOOK MEDS WITHOUT DIFF. IV TO L FA WITH NS @ 50 CC/HR, PATENT, DRSG C/D/I. BREATHING EVEN AND UNLABORED. NO FURTHER CONCERNS AT THIS TIME. BED LOWERED AND LOCKED. CL IN REACH. WILL CTM.
--- NOTE | 2018-09-16 21:15 | NUR ---
VITALS STABLE. PT C/O PAIN IN ABD. MORPHINE GIVEN VIA IV IN L FA, PATENT, NO REDNESS OR EDEMA NOTED, DRSG C/D/I. SEE IV FLOWSHEET. WILL CTM.
[2018-09-17] VITALS: BP 109/60
[2018-09-17 04:00] VITALS: BP 113/71
[2018-09-17 05:45] LABS: BASOPHILS 0.6 % (0-2); EOSINOPHILS 4.1 % (0-7); HEMATOCRIT 36.9 % (36.0-48.0); HEMOGLOBIN 12.1 g/dL (12-16); IMMATURE GRANULOCYTES 0.3 % (0-5); LYMPHOCYTES 49.3 % (15-50); MCH 30.9 pg (26.0-34.0); MCHC 32.8 g/dL (31.0-37.0); MEAN PLATELET VOLUME 10.5 fL (7.4-10.4); MONOCYTES 5.8 % (2-11); NEUTROPHILS 39.9 % (40-80); PLATELET COUNT 322 10x3/uL (130-400); RBC 3.92 10x6/uL (4.00-5.40); RDW 12.9 % (11.5-14.5); WBC 11.8 10x3/uL (4.8-10.8)
[2018-09-17 05:53] LABS: MCV 94.1 fL (80.0-100.0)
[2018-09-17 06:08] LABS: ALBUMIN 2.3 g/dL (3.4-5.0); ALKALINE PHOSPHATASE 158 U/L (46-116); ALT (SGPT) 257 U/L (10-68); BILIRUBIN - TOTAL 0.17 mg/dL (0.2-1.3); CALC OSMOLALITY 279 mosm/kg (275-300); CALCIUM 8.3 mg/dL (8.5-10.1); CARBON DIOXIDE 27.6 mmol/L (21.0-32.0); CHLORIDE - SERUM 103 mmol/L (98-107); CREATININE - SERUM 0.6 mg/dL (0.6-1.3); GLUCOSE 262 mg/dL (74-106); LIPASE 286 U/L (73-393); MAGNESIUM - SERUM 1.7 mg/dL (1.8-2.4); PROTEIN - SERUM 6.3 g/dL (6.4-8.2); SODIUM 136 mmol/L (136-145); UREA NITROGEN 10 mg/dL (7-18); eGFR NON AFRICAN AMERICAN > 90 mL/min (90-120)
[2018-09-17 06:17] LABS: AMYLASE - SERUM 44 U/L (25-115)
--- NOTE | 2018-09-17 06:23 | NUR ---
PT LAYING IN BED RESTING. MORPHINE GIVEN VIA IV TO L FA. DENIES FURTHER NEEDS AT THIS TIME. VITALS STABLE. BED LOWERED AND LOCKED. CL IN [facility]. WILL CTM.
--- NOTE | 2018-09-17 07:00 | NUR ---
RECEIVED REPORT. ASSUMED CARE OF PATIENT. CALL LIGHT WITHIN REACH. PATIENT AWAKE. ASKING WHEN BREAKFAST WITH BE SERVED. DENIES NEEDS. NO DISTRESS. RESP EVEN AND UNLABORED.
[2018-09-17 08:00] VITALS: BP 113/71
--- NOTE | 2018-09-17 09:52 | NUR ---
MEDICATED FOR ABD PAIN AT THIS TIME. NO DISTRESS. RESTING IN BED WITH EYES CLOSED.
--- NOTE | 2018-09-17 12:04 | NUR ---
FSBS 246. 4 UNITS HUMALOG ADMINISTERED PER SLIDING SCALE. NO DISTRESS.
--- NOTE | 2018-09-17 15:08 | NUR ---
MEDICATED FOR PAIN AT THIS TIME. NO DISTRESS.
[2018-09-17 16:45] VITALS: BP 131/80
--- NOTE | 2018-09-17 17:08 | NUR ---
FSBS 199. 2 UNITS INSULIN ADMINISTERED PER SLIDING SCALE. NO DISTRESS.
--- NOTE | 2018-09-17 19:20 | NUR ---
PT C/O PAIN IN ABD, A LEVEL OF 9, MORPHINE 4MG GIVEN ORDERED.
[2018-09-17 20:00] VITALS: BP 130/82
[2018-09-18] VITALS: BP 105/54
--- NOTE | 2018-09-18 00:12 | NUR ---
PT C/O PAIN IN ABD AREA. A LEVEL OF 10. MORPHINE 4MG GIVEN ORDERED.
--- NOTE | 2018-09-18 01:34 | NUR ---
REST QUIETLY IN BED. RESP EVEN, NO S/S OF DISTRESS. CALL LIGHT IN REACH.
--- NOTE | 2018-09-18 03:38 | NUR ---
I have reviewed this patient and I concur with the Shift Assessment completed by the Licensed Practical Nurse today this shift.
[2018-09-18 04:00] VITALS: BP 151/72
[2018-09-18 05:55] LABS: HEMATOCRIT 36.3 % (36.0-48.0); HEMOGLOBIN 11.9 g/dL (12-16); MCH 30.8 pg (26.0-34.0); MCHC 32.8 g/dL (31.0-37.0); MEAN PLATELET VOLUME 10.6 fL (7.4-10.4); PLATELET COUNT 330 10x3/uL (130-400); RBC 3.86 10x6/uL (4.00-5.40); RDW 12.8 % (11.5-14.5); WBC 11.2 10x3/uL (4.8-10.8)
[2018-09-18 06:28] LABS: ALBUMIN 2.2 g/dL (3.4-5.0); ALKALINE PHOSPHATASE 148 U/L (46-116); ALT (SGPT) 249 U/L (10-68); AMYLASE - SERUM 38 U/L (25-115); BILIRUBIN - TOTAL 0.14 mg/dL (0.2-1.3); CALC OSMOLALITY 282 mosm/kg (275-300); CALCIUM 8.4 mg/dL (8.5-10.1); CARBON DIOXIDE 27.8 mmol/L (21.0-32.0); CHLORIDE - SERUM 104 mmol/L (98-107); CREATININE - SERUM 0.5 mg/dL (0.6-1.3); GLUCOSE 255 mg/dL (74-106); LIPASE 185 U/L (73-393); MAGNESIUM - SERUM 1.5 mg/dL (1.8-2.4); POTASSIUM - SERUM 3.7 mmol/L (3.5-5.1); PROTEIN - SERUM 6.3 g/dL (6.4-8.2); SODIUM 138 mmol/L (136-145); eGFR NON AFRICAN AMERICAN > 90 mL/min (90-120)
[2018-09-18 06:31] LABS: UREA NITROGEN 6 mg/dL (7-18)
--- NOTE | 2018-09-18 07:00 | NUR ---
RECEIVED REPORT. ASSUMED CARE OF PATIENT. RESTING ON LEFT LATERAL SIDE WITH EYES CLOSED. RESP EVEN AND UNLABORED. NO DISTRESS. IV FLUIDS INFUSING ORDERED.
[2018-09-18 07:09] LABS: EOSINOPHILS 1 % (0-7); LYMPHOCYTES 57 % (15-50); MONOCYTES 2 % (2-11); NEUTROPHILS 40 % (40-80)
[2018-09-18 07:10] LABS: PLATELET ESTIMATE NORMAL
--- NOTE | 2018-09-18 08:56 | NUR ---
PATIENT IS NOT TOLERATING DIET. DIET INCREASED FROM CLEAR LIQUIDS TO DIABETIC DIET AND IS NOW VOMITING AFTER EATING. PATIENT STATES THAT THE NAUSEA AND VOMITING ARE NOT WORTH IT, EVEN THOUGH THE FOOD TASTE GOOD.
[2018-09-18 09:40] VITALS: BP 125/67
--- NOTE | 2018-09-18 10:16 | NUR ---
MEDICATED FOR PAIN AT THIS TIME. NO DISTRESS.
--- NOTE | 2018-09-18 10:46 | NUR ---
PATIENT EATING PAOLA CRACKERS SINCE GETTING PAIN MEDICATION AFTER STATING THE PAIN WAS NOT WORTH IT, AND NOW SHE IS HURTING AND NAUSEATED AGAIN BUT IT IS TOO SOON TO GET ANY MEDICATION.
--- NOTE | 2018-09-18 11:58 | NUR ---
FSBS 276. 6 UNITS INSULIN PER SLIDING SCALE.
--- NOTE | 2018-09-18 14:10 | NUR ---
CALLED [facility]THEW FOR ORDERS TO RENEW MORPHINE AND MATTHEW STATED NO, THEY ARE SENDING HER HOME. DO RENEW MORPHINE AT THIS TIME.
--- NOTE | 2018-09-18 14:53 | NUR ---
EXPLAINED TO PATIENT THAT I COULD NOT ADMINISTER MORPHINE THE PHYSICIAN WILL NOT REORDER IT BECAUSE THEY ARE SENDING YOU HOME TODAY. PATIENT UPSET, STARTS CRYING. PATIENT STATES SHE IS IN PAIN, THEY KEEP CHANGING THEIR MINDS. SHE REQUESTS SCRUBS SO SHE DOESN'T HAVE TO PUT HER DIRTY CLOTHES ON, INFORMED HER WE HAVE PAPER SCRUBS BUT NOT THE CLOTH SCRUBS ANYMORE TO GIVE OUT TO PATIENTS. PATIENT UPSET ABOUT THAT. PATIENT STATES THAT IF WE DISCHARGE HER THEN WE BETTER CALL OR SEND HER TO [facility] BECAUSE SHE ISN'T FEELING TO WELL RIGHT NOW. GRADUATE TEACHING ASSOCIATE INFORMED OF SITUATION AND MADE AWARE OF PATIENTS THREAT OF SELF HARM.
--- NOTE | 2018-09-18 16:49 | NUR ---
FSBS 232. 4 UNITS HUMALOG ADMINISTERED PER SLIDING SCALE.
[2018-09-18 17:00] VITALS: BP 141/78
--- NOTE | 2018-09-18 18:34 | NUR ---
PT NOT NPO PER HER NURSE AT 1830 / LAST ATE / DRANK AT 1730 PLEASE HOLD PT NPO AT MIDNIGHT / U/S WILL BE DONE IN AM. LEIGH ABDULLAHI
--- NOTE | 2018-09-18 19:08 | NUR ---
RESUMING PATIENT CARE. PATIENT IS RESTING COMFORTABLY IN BED. RESPIRATIONS ARE EVEN AND UNLABORED. NO S/S OF DISTRESS. NO C/O PAIN. CALL LIGHT WITHIN REACH. WILL CPOC.
[2018-09-18 20:00] VITALS: BP 138/82
[2018-09-19] VITALS: BP 137/66
[2018-09-19 04:00] VITALS: BP 130/66
[2018-09-19 05:18] LABS: BASOPHILS 0.6 % (0-2); EOSINOPHILS 2.5 % (0-7); HEMATOCRIT 35.5 % (36.0-48.0); HEMOGLOBIN 11.9 g/dL (12-16); IMMATURE GRANULOCYTES 0.2 % (0-5); LYMPHOCYTES 54.1 % (15-50); MCH 30.7 pg (26.0-34.0); MCHC 33.5 g/dL (31.0-37.0); MEAN PLATELET VOLUME 10.3 fL (7.4-10.4); MONOCYTES 5.5 % (2-11); NEUTROPHILS 37.1 % (40-80); PLATELET COUNT 336 10x3/uL (130-400); RBC 3.87 10x6/uL (4.00-5.40); RDW 12.9 % (11.5-14.5); WBC 13.2 10x3/uL (4.8-10.8)
[2018-09-19 05:20] LABS: ALBUMIN 2.3 g/dL (3.4-5.0); ALKALINE PHOSPHATASE 145 U/L (46-116); ALT (SGPT) 218 U/L (10-68); AMYLASE - SERUM 40 U/L (25-115); BILIRUBIN - TOTAL 0.26 mg/dL (0.2-1.3); CALCIUM 8.6 mg/dL (8.5-10.1); CARBON DIOXIDE 31.1 mmol/L (21.0-32.0); CHLORIDE - SERUM 105 mmol/L (98-107); CREATININE - SERUM 0.4 mg/dL (0.6-1.3); LIPASE 223 U/L (73-393); MAGNESIUM - SERUM 1.6 mg/dL (1.8-2.4); POTASSIUM - SERUM 3.7 mmol/L (3.5-5.1); SODIUM 141 mmol/L (136-145); eGFR NON AFRICAN AMERICAN > 90 mL/min (90-120)
[2018-09-19 05:24] LABS: MCV 91.7 fL (80.0-100.0)
[2018-09-19 05:32] LABS: CALC OSMOLALITY 282 mosm/kg (275-300); GLUCOSE 192 mg/dL (74-106); UREA NITROGEN 4 mg/dL (7-18)
--- NOTE | 2018-09-19 06:55 | NUR ---
REPORT RECEIVED. ALERT. RESP EVEN WITHOUT LABOR. STATES SHE IS HUNGRY AT THIS TIME BUT NPO FOR TEST THIS AM. DENIES ANY CURRENT NEEDS. NO N/V. ABDOMEN IS TENDER IN PLACES. CAREPLAN REVIEWED WITH SAFETY PRECAUTIONS IN PLACE. SHE REFUSES SCD'S.
--- NOTE | 2018-09-19 08:29 | NUR ---
DEIDRA ANP HERE AT THIS TIME. SHE C/O ABDOMINAL PAIN SINCE THIS AM AFTER THEY COMPLETED ABDOMINAL US. NEW ORDER FOR DILAUDID 1MG IV ONE TIME ONLY.
[2018-09-19 09:12] VITALS: BP 115/63
--- NOTE | 2018-09-19 13:30 | NUR ---
RESTING WITH EASE. HAS OFFERED NO C/O TODAY SINCE GETTING PAIN MEDICATION EARLIER TODAY
[2018-09-19 15:42] VITALS: BP 122/69
--- NOTE | 2018-09-19 17:10 | NUR ---
URINE SPECIMEN COLLECTED VIA CLEAN CATCH AND TOOK TO LAB
[2018-09-19 18:05] LABS: APPEARANCE CLEAR (CLEAR); BILIRUBIN NEGATIVE (NEGATIVE); COLOR YELLOW (YELLOW); GLUCOSE 1000 mg/dL (NEGATIVE); KETONE NEGATIVE (NEGATIVE); NITRITE NEGATIVE (NEGATIVE); PROTEIN NEGATIVE (NEGATIVE); SPECIFIC GRAVITY 1.005 (1.005-1.020); UROBILINOGEN NORMAL (NORMAL)
--- NOTE | 2018-09-19 20:15 | NUR ---
RECIEVED BEDSIDE REPORT, EVENING ROUND COMPLETED. VSS, AAO X4, NO SS OF DISTRESS. DENIES PAIN AT THIS TIME. PT CURRENTLY RESTING IN BED, CALL LIGHT IN REACH, BED IN THE LOWEST POSITION. WILL CPOC.
[2018-09-19 21:12] VITALS: BP 137/80
[2018-09-20] VITALS: BP 141/82
--- NOTE | 2018-09-20 | NUR ---
PT C/O UNCONTOLLED BM. NOTIFIED JOEL LE APN STATED TO WATCH PT FOR THE NIGHT AND WILL REEVALUATE AND NOTIFY DR FARRIS IN THE AM. PT CURRENTLY IN BED, VSS WILL CONTINUE TO MONITOR.
[2018-09-20 04:00] VITALS: BP 141/70
[2018-09-20 06:05] LABS: BASOPHILS 0.4 % (0-2); EOSINOPHILS 2.6 % (0-7); HEMATOCRIT 37.8 % (36.0-48.0); HEMOGLOBIN 12.8 g/dL (12-16); IMMATURE GRANULOCYTES 0.2 % (0-5); MCH 31.4 pg (26.0-34.0); MCHC 33.9 g/dL (31.0-37.0); MCV 92.9 fL (80.0-100.0); MEAN PLATELET VOLUME 10.8 fL (7.4-10.4); MONOCYTES 6.3 % (2-11); NEUTROPHILS 42.5 % (40-80); PLATELET COUNT 398 10x3/uL (130-400); RBC 4.07 10x6/uL (4.00-5.40); WBC 13.9 10x3/uL (4.8-10.8)
[2018-09-20 06:33] LABS: ALBUMIN 2.7 g/dL (3.4-5.0); ALKALINE PHOSPHATASE 225 U/L (46-116); ALT (SGPT) 199 U/L (10-68); BILIRUBIN - TOTAL 0.22 mg/dL (0.2-1.3); CALCIUM 8.8 mg/dL (8.5-10.1); CHLORIDE - SERUM 101 mmol/L (98-107); LIPASE 591 U/L (73-393); MAGNESIUM - SERUM 1.7 mg/dL (1.8-2.4); PROTEIN - SERUM 7.2 g/dL (6.4-8.2); SODIUM 140 mmol/L (136-145)
[2018-09-20 06:35] LABS: AMYLASE - SERUM 72 U/L (25-115); CALC OSMOLALITY 288 mosm/kg (275-300); CREATININE - SERUM 0.7 mg/dL (0.6-1.3); GLUCOSE 293 mg/dL (74-106); UREA NITROGEN 9 mg/dL (7-18); eGFR NON AFRICAN AMERICAN > 90 mL/min (90-120)
[2018-09-20 06:36] LABS: POTASSIUM - SERUM 4.2 mmol/L (3.5-5.1)
--- NOTE | 2018-09-20 06:55 | NUR ---
REPORT RECEIVED. SHE IS ALERT ABLE TO VOICE NEEDS. OFFERS NO C/O STATES I NEED TO SLEEP MORE. NO C/O PAIN. IV IN LEFT FOREARM OF NS AT 50CC/HR SITE IS CLEAR. RESP EVEN WITHOUT LABOR. SHE REFUSES TO WEAR SCD'S.
[2018-09-20 08:45] VITALS: BP 162/81
[2018-09-20] MEDS ORDERED: FLAGYL500 MG PO (10:25)
[2018-09-20] MEDS ORDERED: LEVAQUIN750 MG PO (10:25)
[2018-09-20] MEDS ORDERED: GEMFIBROZIL600 MG PO (10:26)
[2018-09-20 11:29] VITALS: BP 155/85
--- NOTE | 2018-09-20 14:05 | NUR ---
DISCHARGE INSTRUCTIONS GIVEN TO HER AT THIS TIME. EXPLAINED IN DETAIL. SHE IS AWARE OF NEW MEDS AND FOLLOW UP APPOINTMENT. TELEMETRY RETURNED TO [employer]. SHE IS WAITING ON SOME SCRUBS TO WEAR BECAUSE SHE CAME IN A [facility] TOP, ALSO GIVEN A BUS PASS DUE TO NO VEHICLE
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
--- NOTE | 2018-09-20 14:50 | NUR ---
SHE DECLINED W/C TRANSPORT. SALINE LOCK WAS D/C WITH CATH TIP INTACT, MINIMAL BLEEDING NOTED FROM SITE. SHE LEFT AT THIS TIME. NO C/O PAIN NO CHANGE IN CONDITION.
[2018-09-20 15:05] VITALS: BP 148/75
== END 2018-09-20 14:50 | disposition home or self-care (01) | DRG 439 ==
LOC: D.ER 11:57 → D.M2 16:33
PROVIDERS: Family Medicine; Family Medicine Adult Medicine; Internal Medicine Nephrology; ADMIT Family Medicine; ATTEND Family Medicine
DX: K85.90 Acute pancreatitis without necrosis or infection, unspecified (principal); E87.1 Hypo-osmolality and hyponatremia; F17.213 Nicotine dependence, cigarettes, with withdrawal; A59.9 Trichomoniasis, unspecified; E11.65 Type 2 diabetes mellitus with hyperglycemia; Z91.19 Patient's noncompliance with other medical treatment and regimen; K59.00 Constipation, unspecified

== ENCOUNTER 2019-02-26 18:39 | Inpatient (IN) | payer MEDICAID ==
[~2019-02-26] VITALS: Ht 160 cm; Wt 59.1 kg
[~2019-02-26 18:39] MED LIST changes: +FLAGYL500 MG PO; +GEMFIBROZIL600 MG PO; +LEVAQUIN750 MG PO
--- NOTE | 2019-02-26 19:52 | NUR ---
ERP INFORMED OF [facility] 505.
[2019-02-26 20:02] LABS: BASOPHILS 0.4 % (0-2); EOSINOPHILS 0.6 % (0-7); HEMATOCRIT 37.7 % (36.0-48.0); HEMOGLOBIN 12.7 g/dL (12-16); IMMATURE GRANULOCYTES 0.2 % (0-5); LYMPHOCYTES 29.7 % (15-50); MCH 31.8 pg (26.0-34.0); MCHC 33.7 g/dL (31.0-37.0); MCV 94.5 fL (80.0-100.0); MONOCYTES 7.5 % (2-11); NEUTROPHILS 61.6 % (40-80); PLATELET COUNT 427 10x3/uL (130-400); RBC 3.99 10x6/uL (4.00-5.40); RDW 12.2 % (11.5-14.5); WBC 17.8 10x3/uL (4.8-10.8)
[2019-02-26 20:04] LABS: APPEARANCE HAZY (CLEAR); COLOR YELLOW (YELLOW)
[2019-02-26 20:05] LABS: BILIRUBIN NEGATIVE (NEGATIVE); GLUCOSE 1000 mg/dL (NEGATIVE); KETONE NEGATIVE (NEGATIVE); NITRITE POSITIVE (NEGATIVE); PROTEIN 1+ mg/dL (NEGATIVE); UROBILINOGEN NORMAL (NORMAL)
[2019-02-26 20:08] LABS: EPITHELIAL CELLS 0-5 /hpf (0-5); RED CELLS - URINE 0-5 /hpf (0-5)
[2019-02-26 20:09] LABS: BACTERIA MODERATE /hpf (NEGATIVE)
[2019-02-26 20:11] LABS: UDS - AMPHET NEGATIVE QUAL (NEGATIVE); UDS - BARB NEGATIVE QUAL (NEGATIVE); UDS - BENZO NEGATIVE QUAL (NEGATIVE); UDS - COCAINE NEGATIVE QUAL (NEGATIVE); UDS - OPIATE NEGATIVE QUAL (NEGATIVE); UDS - PCP NEGATIVE QUAL (NEGATIVE); UDS - THC POSITIVE QUAL (NEGATIVE)
--- NOTE | 2019-02-26 20:29 | NUR ---
ERP INFORMED OF LACTIC ACID OF 3.1
[2019-02-26 20:36] LABS: ALBUMIN 2.7 g/dL (3.4-5.0); ALKALINE PHOSPHATASE 159 U/L (46-116); ALT (SGPT) 136 U/L (10-68); BILIRUBIN - TOTAL 0.33 mg/dL (0.2-1.3); CARBON DIOXIDE 26.8 mmol/L (21.0-32.0); CHLORIDE - SERUM 91 mmol/L (98-107); CREATININE - SERUM 1.2 mg/dL (0.6-1.3); MAGNESIUM - SERUM 1.7 mg/dL (1.8-2.4); POTASSIUM - SERUM 4.1 mmol/L (3.5-5.1); PROTEIN - SERUM 8.1 g/dL (6.4-8.2); SODIUM 130 mmol/L (136-145); UREA NITROGEN 18 mg/dL (7-18); eGFR NON AFRICAN AMERICAN 51 mL/min (90-120)
[2019-02-26 20:42] LABS: CALC OSMOLALITY 288 mosm/kg (275-300); GLUCOSE 562 mg/dL (74-106)
[2019-02-26 20:47] LABS: KETONE - SERUM NEGATIVE (NEGATIVE)
--- NOTE | 2019-02-26 22:45 | NUR ---
PT ARRIVED TO FLOOR VIA W/C. GAIT SLOW AND STEADY. EDUCATED AUTOMATIC PROFILE SANDER OPERATOR LIGHT FOR ASSISTANCE. WILL CTM.
[2019-02-26 23:18] VITALS: BP 132/78; BMI 23.0
[2019-02-27 00:30] VITALS: BP 133/74
--- NOTE | 2019-02-27 01:23 | NUR ---
I have reviewed this patient and I concur with the Shift Assessment completed by the Licensed Practical Nurse today this shift.
[2019-02-27 04:03] VITALS: BP 134/77
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
[2019-02-27 08:40] VITALS: BP 130/77
[2019-02-27 12:43] VITALS: BMI 23.0
[2019-02-27 13:01] VITALS: BP 131/76
[2019-02-27 13:55] VITALS: Ht 160 cm; Wt 59.1 kg
[2019-02-27 17:27] VITALS: BP 146/83
--- NOTE | 2019-02-27 17:35 | MORECARE ---
CASE MANAGEMENT DISCHARGE SUMMARY PATIENT: GILBERT VERA UNIT: [id number] ADM DATE: 02/26/19 AGE: 49 : 74 SEX: F ROOM/BED: D.2105 AUTHOR: TEQUILA BRASHER PHYSICIAN: REFERRING PHYSICIAN: JIMMY FARRIS MD DATE OF SERVICE: 02/27/19 Discharge Plan Patient Name: GILBERT VERA [facility] [facility] 1970 Planned Disposition: Home Anticipated Discharge Date: Discharge Date: Expected LOS: Initial Reviewer: [email or web address] Initial Review Date: 02/26/2019 Generated: 02/27/19 6:34 pm DCPIA - Discharge Planning Initial Assessment Updated by [email or web address]: Jorge Garza on 02/27/19 5:32 pm * Is the patient Alert and Oriented? Yes * How many steps to enter\exit or inside your home? * PCP NONE * Pharmacy [facility] * Preadmission Environment Home with Family * ADLs Independent * Equipment None * Other Equipment NO MEDICAL EQUIPMENT PROVIDER PREFERNECE * List name and contact numbers for known caregivers / representatives who currently or will assist patient after discharge: MILLY STERLING, MOTHER, * Verbal permission to speak to the caregivers and representatives has been obtained from the patient. N/A * Community resources currently utilized None * Please name any agencies selected above. NONE * Additional services required to return to the preadmission environment? No * Can the patient safely return to the preadmission environment? Yes * Has this patient been hospitalized within the prior 30 days at any hospital? No Patient Name: GILBERT VERA Page 26027 at 1735 All edits/amendments must be made on the electronic document DICTATION DATE: 02/27/191733 TRACK WALKER: OCTAVIO 02/27/191733 RPT#: [id number] DC DATE: STATUS: ADM IN [facility] [address] [place] [address] END OF REPORT
--- NOTE | 2019-02-27 17:43 | MORECARE ---
CASE MANAGEMENT DISCHARGE SUMMARY PATIENT: GILBERT VERA UNIT: [id number] ADM DATE: 02/26/19 AGE: 49 : 74 SEX: F ROOM/BED: D.5754 AUTHOR: SAMEERA,DOC PHYSICIAN: REFERRING PHYSICIAN: JIMMY FARRIS MD DATE OF SERVICE: 02/27/19 Discharge Plan Patient Name: GILBERT VERA Facility: [facility]:[place] : 1970 Planned Disposition: Home Anticipated Discharge Date: Discharge Date: Expected LOS: Initial Reviewer: [email or web address] Initial Review Date: 02/26/2019 Generated: 02/27/19 6:42 pm Comments DCP- Discharge Planning Updated by [email or web address]: Jorge Garza on 02/27/19 4:[address] Patient Name: GILBERT VERA Admission Status: ER Accout number: [id number] Admission Date: 02-26-2019 : 1970 Admission Diagnosis:TYPE 2 DIABETES MELLITUS WITH HYPERGLYCEMIA Attending: JIMMY FARRIS Current LOS: 1 Anticipated DC Date: Planned Disposition: Home Primary Insurance: MEDICAID [place] PENDING Discharge Planning Comments: CM RECEIVED ORDER THAT PT IS HOMELESS AND NEEDS DIABETIC SUPPLIES FOR DISCHARGE. CM MET WITH PT IN ROOM TO DISCUSS DISCHARGE PLANNING AND NEEDS. PT REPORTS LIVING AT HOME INDEPENDENTLY WITH HER FRIEND WHO PT CARE FOR HER FRIENDS CHILDREN IN THE HOME. PT HAS NO MEDICAL EQUIPMENT AND NO OUTSIDE SERVICES ASSISTING IN THE HOME. CM DISCUSSED AVAILABILITY OF HOME HEALTH, REHAB SERVICES AND MEDICAL EQUIPMENT. PT REPORTS THAT HER DIABETIC SUPPLIES WERE STOLEN AND SHE HAS BEEN WITOUT ANY TESING SUPPLIES FOR 2 MONTHS. PT HAS BEEN USING HER LAST NOVALOG PEN TRYING TO "MAKE IT LAST" LONG POSSIBLE. PT REPORTS SHE THINKS SHE WAS ON NOVALOG PEN AND HUMILIN R VIAL INSULIN. PT STATES SHE HAS NOT MONEY TO BUY HER INSULIN OR SUPPLIES. PT STATES SHE PLANS TO GO TO THE [facility] TO ASK FOR ASSISTANCE IN GETTING SUPPLIES AND INSULIN. PT STATES THE BUILDING GUARD DEPUTY SHERIFF FROM [facility] REAPPLIED FOR MEDICAID FOR HER AND IT WILL BE PROCESSED IN ABOUT TWO WEEKS. PT STATES HER FRIEND WILL PICK HER UP FOR DISCHARGE HOME. CM CALLED [facility] IN [place], , THEY ARE OPEN 02-28-19 FROM 8:30AM TO 5:00PM. CM WILL NEED TO KNOW WHAT TYPE AND QUANTITY OF INSULIN PT WILL REQUIRE TO GET COSTS ESTIMATE FOR SUPERVISORY REVIEW. Snow Plow Operator: Jorge Garza DCPIA - Discharge Planning Initial Assessment Updated by [id number]: Jorge Garza on 02/27/19 5:32 pm * Is the patient Alert and Oriented? Yes * How many steps to enter\\exit or inside your home? * PCP NONE * Pharmacy [facility] [place] * Preadmission Environment Home with Family * ADLs Independent * Equipment None * Other Equipment NO MEDICAL EQUIPMENT PROVIDER PREFERNECE * List name and contact numbers for known caregivers / representatives who currently or will assist patient after discharge: MILLY STERLING, MOTHER, * Verbal permission to speak to the caregivers and representatives has been obtained from the patient. N/A * Community resources currently utilized None * Please name any agencies selected above. NONE * Additional services required to return to the preadmission environment? No * Can the patient safely return to the preadmission environment? Yes * Has this patient been hospitalized within the prior 30 days at any hospital? No Last DP export: 02/27/19 4:35 Patient Name: GILBERT VERA Page [id number] at 1743 All edits/amendments must be made on the electronic document DICTATION DATE: 02/27/191741 ADOBE LAYER HELPER: OCTAVIO 02/27/191741 RPT#: [id number] DC DATE: STATUS: ADM IN [facility] [address] [place] [address] END OF REPORT
--- NOTE | 2019-02-27 19:10 | NUR ---
REPORT RECEIVED, WILL CONTINUE POC. PATIENT A&O, UP WITH ASSIST. RESTING ON LEFT SIDE. NO S/S OF DISTRESS OBSERVED, RR EVEN AND UNLABORED ON ROOM AIR. PIV TO LT FA, PATENT, INFUSING NS @ KVO. PATIENT DENIES NEEDS AT THIS. CL IN REACH, BED LOCKED AND LOWERED, WILL CTM.
[2019-02-27 20:00] VITALS: BP 107/59
--- NOTE | 2019-02-27 22:33 | NUR ---
CRITICAL LAB RESULTS REPORTED TO JOEL LE
[2019-02-28 00:09] VITALS: BP 125/75
--- NOTE | 2019-02-28 02:08 | NUR ---
I have reviewed this patient and I concur with the Shift Assessment completed by the Licensed Practical Nurse today this shift.
[2019-02-28 04:00] VITALS: BP 135/76
[2019-02-28 05:09] LABS: BASOPHILS 0.5 % (0-2); EOSINOPHILS 3.6 % (0-7); HEMATOCRIT 33.8 % (36.0-48.0); HEMOGLOBIN 11.2 g/dL (12-16); IMMATURE GRANULOCYTES 0.4 % (0-5); LYMPHOCYTES 43.1 % (15-50); MCH 31.1 pg (26.0-34.0); MCHC 33.1 g/dL (31.0-37.0); MCV 93.9 fL (80.0-100.0); MEAN PLATELET VOLUME 10.2 fL (7.4-10.4); MONOCYTES 8.5 % (2-11); NEUTROPHILS 43.9 % (40-80); PLATELET COUNT 443 10x3/uL (130-400); RDW 12.3 % (11.5-14.5)
[2019-02-28 05:58] LABS: ALBUMIN 2.3 g/dL (3.4-5.0); ALKALINE PHOSPHATASE 184 U/L (46-116); ALT (SGPT) 112 U/L (10-68); CALCIUM 8.6 mg/dL (8.5-10.1); CARBON DIOXIDE 29.2 mmol/L (21.0-32.0); CHLORIDE - SERUM 100 mmol/L (98-107); POTASSIUM - SERUM 4.1 mmol/L (3.5-5.1); PROTEIN - SERUM 7.2 g/dL (6.4-8.2); SODIUM 135 mmol/L (136-145); UREA NITROGEN 17 mg/dL (7-18); eGFR NON AFRICAN AMERICAN 81 mL/min (90-120)
[2019-02-28 06:02] LABS: CALC OSMOLALITY 285 mosm/kg (275-300); CREATININE - SERUM 0.8 mg/dL (0.6-1.3); GLUCOSE 343 mg/dL (74-106)
--- NOTE | 2019-02-28 07:34 | NUR ---
RECEIVED REPORT. ASSUMED CARE OF PATIENT. PATIENT SITTING UP IN BED WITH AM MEAL. PATIENT REMEMBERS THIS INSIDE CONTRACTOR SALES FROM A PREVIOUS HOSPITAL STAY. PATIENT DENIES NEEDS AT THIS TIME. NO DISTRESS. CALL LIGHT WITHIN REACH.
--- NOTE | 2019-02-28 08:53 | NUR ---
REFUSED NICOTINE PATCH THIS AM. NO DISTRESS.
[2019-02-28 09:19] VITALS: BP 121/73
--- NOTE | 2019-02-28 11:19 | NUR ---
FSBS 327. 8 UNITS HUMULIN R ADMINISTERED PER SLIDING SCALE. NO DISTRESS.
[2019-02-28 11:32] LABS: % SATURATION 17 % (15-55); IRON 50 ug/dl (35-150); TOTAL IRON BIND CAPACITY 294 ug/dl (260-445); UNSAT IRON BIND CAPACITY 244 ug/dl (150-375)
[2019-02-28 12:13] VITALS: BP 123/75
--- NOTE | 2019-02-28 12:25 | MORECARE ---
CASE MANAGEMENT DISCHARGE SUMMARY PATIENT: GILBERT VERA UNIT: [id number] ADM DATE: 02/26/19 AGE: 49 : 74 SEX: F ROOM/BED: D.4456 AUTHOR: SAMEERA,DOC PHYSICIAN: REFERRING PHYSICIAN: JIMMY FARRIS MD DATE OF SERVICE: 02/28/19 Discharge Plan Patient Name: GILBERT VERA Facility: [facility]:[place] : 1970 Planned Disposition: Home Anticipated Discharge Date: Discharge Date: Expected LOS: Initial Reviewer: [email or web address] Initial Review Date: 02/26/2019 Generated: 02/28/19 1:24 pm Comments DCP- Discharge Planning Updated by [id number]: Jorge Garza on 02/28/19 11:[address] Patient Name: GILBERT VERA Encounter No: [id number] : 1970 Primary Insurance: MEDICAID [place] PENDING Anticipated DC Date: Planned Disposition: Home DCP follow-up note: CM SPOKE TO JOEL CORTEZ, RECEIVED PRESCRIPTION FOR GLUCOSE MONITOR, 1 BOX LANCETS, 1 BOX TESTING STRIPS, 1 BOX ALCOHOL PADS. CHART REVIEWED. PRESCRIPTION PLACED IN FRONT OF PT'S PHYSICAL CHART. CM WILL NEED TO KNOW WHAT TYPE AND QUANTITY OF INSULIN PT WILL REQUIRE TO GET COSTS ESTIMATE FOR SUPERVISORY REVIEW TO DETERMINE IF THE HOSPITAL IS WILLING AND ABLE TO PROVIDE NEEDED MATERIALS FOR DISCHARGE HOME. Assistant Teacher Primary: Jorge Garza DCP- Discharge Planning Updated by [id number]: Jorge Garza on 02/27/19 4:[address] Patient Name: GILBERT VERA Admission Status: ER Accout number: [id number] Admission Date: 02-26-2019 : 1970 Admission Diagnosis:TYPE 2 DIABETES MELLITUS WITH HYPERGLYCEMIA Attending: JIMMY FARRIS Current LOS: 1 Anticipated DC Date: Planned Disposition: Home Primary Insurance: MEDICAID [place] PENDING Discharge Planning Comments: CM RECEIVED ORDER THAT PT IS HOMELESS AND NEEDS DIABETIC SUPPLIES FOR DISCHARGE. CM MET WITH PT IN ROOM TO DISCUSS DISCHARGE PLANNING AND NEEDS. PT REPORTS LIVING AT HOME INDEPENDENTLY WITH HER FRIEND WHO PT CARE FOR HER FRIENDS CHILDREN IN THE HOME. PT HAS NO MEDICAL EQUIPMENT AND NO OUTSIDE SERVICES ASSISTING IN THE HOME. CM DISCUSSED AVAILABILITY OF HOME HEALTH, REHAB SERVICES AND MEDICAL EQUIPMENT. PT REPORTS THAT HER DIABETIC SUPPLIES WERE STOLEN AND SHE HAS BEEN WITOUT ANY TESING SUPPLIES FOR 2 MONTHS. PT HAS BEEN USING HER LAST NOVALOG PEN TRYING TO "MAKE IT LAST" LONG POSSIBLE. PT REPORTS SHE THINKS SHE WAS ON NOVALOG PEN AND HUMILIN R VIAL INSULIN. PT STATES SHE HAS NOT MONEY TO BUY HER INSULIN OR SUPPLIES. PT STATES SHE PLANS TO GO TO THE [facility] TO ASK FOR ASSISTANCE IN GETTING SUPPLIES AND INSULIN. PT STATES THE PAPER MACHINE BACK TENDER FROM THE [facility] REAPPLIED FOR MEDICAID FOR HER AND IT WILL BE PROCESSED IN ABOUT TWO WEEKS. PT STATES HER FRIEND WILL PICK HER UP FOR DISCHARGE HOME. CM CALLED [facility] [place], , THEY ARE OPEN 02-28-19 FROM 8:30AM TO 5:00PM. CM WILL NEED TO KNOW WHAT TYPE AND QUANTITY OF INSULIN PT WILL REQUIRE TO GET COSTS ESTIMATE FOR SUPERVISORY REVIEW. Assistant Teacher Primary: Jorge Garza DCPIA - Discharge Planning Initial Assessment Updated by [email or web address]: Jorge Garza on 02/27/19 5:32 pm * Is the patient Alert and Oriented? Yes * How many steps to enter\\exit or inside your home? * PCP NONE * Pharmacy [facility] [place] * Preadmission Environment Home with Family * ADLs Independent * Equipment None * Other Equipment NO MEDICAL EQUIPMENT PROVIDER PREFERNECE * List name and contact numbers for known caregivers / representatives who currently or will assist patient after discharge: MILLY STERLING, MOTHER, * Verbal permission to speak to the caregivers and representatives has been obtained from the patient. N/A * Community resources currently utilized None * Please name any agencies selected above. NONE * Additional services required to return to the preadmission environment? No * Can the patient safely return to the preadmission environment? Yes * Has this patient been hospitalized within the prior 30 days at any hospital? No Last DP export: 02/27/19 4:43 Patient Name: GILBERT VERA Page 22819 at 1225 All edits/amendments must be made on the electronic document DICTATION DATE: 02/28/195 ELECTRICAL CALIBRATOR: OCTAVIO 02/28/194 RPT#: [id number] PR DATE: STATUS: ADM IN [facility] [address] [facility] [place] [address] END OF REPORT
--- NOTE | 2019-02-28 13:36 | NUR ---
MEDICATED FOR PAIN AT THIS TIME. NO DISTRESS.
--- NOTE | 2019-02-28 17:13 | NUR ---
FSBS 370. 10 UNITS HUMULIN R ADMINISTERED PER SLIDING SCALE.
[2019-02-28 17:43] VITALS: BP 106/70
--- NOTE | 2019-02-28 19:18 | NUR ---
AROUSES EASILY NEEDS SAW TO BED LOW AND LOCKED SRX2 AND CALL LIGHT IS WITH PT
[2019-02-28 20:00] VITALS: BP 129/75
--- NOTE | 2019-02-28 22:31 | NUR ---
I have reviewed this patient and I concur with the Shift Assessment completed by the Licensed Practical Nurse today this shift.
[2019-03-01] VITALS: BP 131/73
[2019-03-01 04:00] VITALS: BP 119/70
[2019-03-01 05:26] LABS: HEMATOCRIT 33.7 % (36.0-48.0); HEMOGLOBIN 11.2 g/dL (12-16); MCH 31.2 pg (26.0-34.0); MCHC 33.2 g/dL (31.0-37.0); MCV 93.9 fL (80.0-100.0); MEAN PLATELET VOLUME 10.3 fL (7.4-10.4); PLATELET COUNT 499 10x3/uL (130-400); RBC 3.59 10x6/uL (4.00-5.40); RDW 12.3 % (11.5-14.5); WBC 17.9 10x3/uL (4.8-10.8)
[2019-03-01 05:37] LABS: ALBUMIN 2.1 g/dL (3.4-5.0); ALKALINE PHOSPHATASE 193 U/L (46-116); ALT (SGPT) 115 U/L (10-68); CALC OSMOLALITY 283 mosm/kg (275-300); CALCIUM 8.7 mg/dL (8.5-10.1); CARBON DIOXIDE 30.5 mmol/L (21.0-32.0); CHLORIDE - SERUM 99 mmol/L (98-107); CREATININE - SERUM 0.7 mg/dL (0.6-1.3); GLUCOSE 328 mg/dL (74-106); POTASSIUM - SERUM 4.2 mmol/L (3.5-5.1); PROTEIN - SERUM 7.3 g/dL (6.4-8.2); SODIUM 135 mmol/L (136-145); UREA NITROGEN 15 mg/dL (7-18); eGFR NON AFRICAN AMERICAN > 90 mL/min (90-120)
[2019-03-01 05:40] LABS: BILIRUBIN - TOTAL 0.09 mg/dL (0.2-1.3)
[2019-03-01 06:27] LABS: LYMPHOCYTES 41 % (15-50); MONOCYTES 9 % (2-11); NEUTROPHILS 48 % (40-80); PLATELET ESTIMATE INCREASED
[2019-03-01 08:07] VITALS: BP 128/79
--- NOTE | 2019-03-01 08:36 | NUR ---
AM MEDS GIVEN AT THIS TIME. PT DENIES ANY NEEDS AT THIS TIME. PT A/O X4, RESP EVEN AND NONLABORED ON RA. LT FA IV SL. CALL LIGHT IN REACH, NAD NOTED, WILL CONTINUE TO MONITOR.
[2019-03-01 11:05] VITALS: BP 135/71
--- NOTE | 2019-03-01 12:30 | NUR ---
GAVE ULTRAM FOR PAIN LEVEL OF 10/10. PT DENIES ANY OTHER NEEDS AT THIS TIME. CALL LIGHT IN REACH, NAD NOTED, WILL CONTINUE TO MONITOR.
[2019-03-01 15:16] VITALS: BP 125/75
--- NOTE | 2019-03-01 16:28 | NUR ---
BLOOD SUGAR OF 368, 10UNITS OF INSULIN GIVEN PER S/S. PT ASKING WHEN SHE CAN HAVE PAIN MEDICATIONS, INFORMED PT THAT SHE CANNOT HAVE ANYTHING FOR PAIN UNTIL AROUND 1745. PT DENIES ANY OTHER NEEDS AT THIS TIME. CALL LIGHT IN REACH, NAD NOTED,W ILL CONTINUE TO MONITOR.
[2019-03-01 20:00] VITALS: BP 118/72
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
[2019-03-02] VITALS (7 sets, daily range): BP systolic 102–128; BP diastolic 48–80
--- NOTE | 2019-03-02 03:04 | NUR ---
I have reviewed this patient and I concur with the Shift Assessment completed by the Licensed Practical Nurse today this shift.
[2019-03-02 05:03] LABS: BASOPHILS 0.6 % (0-2); EOSINOPHILS 5.2 % (0-7); HEMATOCRIT 33.9 % (36.0-48.0); HEMOGLOBIN 11.2 g/dL (12-16); IMMATURE GRANULOCYTES 0.4 % (0-5); LYMPHOCYTES 39.9 % (15-50); MCH 31.1 pg (26.0-34.0); MCV 94.2 fL (80.0-100.0); MEAN PLATELET VOLUME 10.1 fL (7.4-10.4); MONOCYTES 6.4 % (2-11); NEUTROPHILS 47.5 % (40-80); PLATELET COUNT 527 10x3/uL (130-400); RDW 12.1 % (11.5-14.5); WBC 13.8 10x3/uL (4.8-10.8)
[2019-03-02 05:16] LABS: ALBUMIN 2.1 g/dL (3.4-5.0); ALKALINE PHOSPHATASE 200 U/L (46-116); ALT (SGPT) 123 U/L (10-68); CALCIUM 8.9 mg/dL (8.5-10.1); CHLORIDE - SERUM 97 mmol/L (98-107); CREATININE - SERUM 0.6 mg/dL (0.6-1.3); POTASSIUM - SERUM 4.1 mmol/L (3.5-5.1); PROTEIN - SERUM 7.3 g/dL (6.4-8.2); SODIUM 134 mmol/L (136-145); eGFR NON AFRICAN AMERICAN > 90 mL/min (90-120)
[2019-03-02 05:18] LABS: BILIRUBIN - TOTAL 0.07 mg/dL (0.2-1.3); CALC OSMOLALITY 279 mosm/kg (275-300); GLUCOSE 276 mg/dL (74-106); UREA NITROGEN 19 mg/dL (7-18)
--- NOTE | 2019-03-02 07:24 | NUR ---
PT RECEIVED AWAKE AND ALERT IN BED. NO NEEDS AT PRESENT. AWAITING BREAKFAST.
--- NOTE | 2019-03-02 13:59 | NUR ---
Nutrition Follow-up: Diet: Renal ADA PO intake: 100% Wt: 130# (03/02); 130# (02/27) Last BM: 02/28 Labs noted: Na 134, Glu 276, Alb 2.1 Meds noted: Lantus, Humulin -Rec may consider liberalizing to Low Na Carb Consistent diet. -RD following.
--- NOTE | 2019-03-02 15:28 | NUR ---
PT WITH POST VOID RESIDUAL OF 0 ML WITH BLADDER SCAN.
--- NOTE | 2019-03-02 19:50 | NUR ---
PT LAYING IN BED ALERT AND ORIENTED X4. FSBS-405. 12 UNITS OF INSULIN GIVEN BASED ON LOW RESISTANCE SCALE. NO S/S OF DISTRESS AT THIS TIME. PT DENIES ANY PAIN OR FURTHER NEEDS AT THIS TIME. BED LOW CALL LIGHT WITHIN REACH. WILL CONTINUE TO MONITOR.
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
[2019-03-03 03:50] VITALS: BP 133/72
[2019-03-03 06:29] LABS: ALBUMIN 2.2 g/dL (3.4-5.0); ALKALINE PHOSPHATASE 241 U/L (46-116); CALC OSMOLALITY 279 mosm/kg (275-300); CARBON DIOXIDE 35.7 mmol/L (21.0-32.0); CHLORIDE - SERUM 96 mmol/L (98-107); CREATININE - SERUM 0.6 mg/dL (0.6-1.3); GLUCOSE 251 mg/dL (74-106); POTASSIUM - SERUM 4.4 mmol/L (3.5-5.1); PROTEIN - SERUM 7.8 g/dL (6.4-8.2); SODIUM 135 mmol/L (136-145); UREA NITROGEN 17 mg/dL (7-18); eGFR NON AFRICAN AMERICAN > 90 mL/min (90-120)
[2019-03-03 06:30] LABS: ALT (SGPT) 173 U/L (10-68)
[2019-03-03 07:45] LABS: BASOPHILS 0.5 % (0-2); EOSINOPHILS 4.7 % (0-7); HEMATOCRIT 34.7 % (36.0-48.0); HEMOGLOBIN 11.4 g/dL (12-16); IMMATURE GRANULOCYTES 0.5 % (0-5); LYMPHOCYTES 43.2 % (15-50); MCH 31.6 pg (26.0-34.0); MCHC 32.9 g/dL (31.0-37.0); MCV 96.1 fL (80.0-100.0); MEAN PLATELET VOLUME 10.3 fL (7.4-10.4); MONOCYTES 6.3 % (2-11); NEUTROPHILS 44.8 % (40-80); PLATELET COUNT 570 10x3/uL (130-400); RBC 3.61 10x6/uL (4.00-5.40); RDW 12.2 % (11.5-14.5); WBC 14.7 10x3/uL (4.8-10.8)
--- NOTE | 2019-03-03 07:48 | NUR ---
REPORT RECIEVED. PT LYING ON LEFT SIDE. SHE HAS A L FA PIV THAT IS SL. RR EVEN AND UNLABORED. BED LOCKED AND IN LOWEST POSITION. CALL LIGHT WITHIN REACH. WILL CTM
[2019-03-03 09:43] VITALS: BP 102/66
[2019-03-03 12:14] VITALS: BP 150/86
[2019-03-03 16:17] VITALS: BP 135/80
--- NOTE | 2019-03-03 17:58 | NUR ---
I have reviewed this patient and I concur with the Shift Assessment completed by the Licensed Practical Nurse today this shift.
[2019-03-03 20:00] VITALS: BP 115/66
--- NOTE | 2019-03-03 20:30 | NUR ---
PT C/O PAIN 10/10 TO HER FEET. TRAMADOL AND NEURONTIN GIVEN ORDERED. SHE DENIES FURTHER NEEDS. BED LOW AND CALL LIGHT WITHIN REACH.
[2019-03-04] VITALS: BP 133/76
[2019-03-04 04:00] VITALS: BP 118/72
[2019-03-04 05:05] LABS: BASOPHILS 0.6 % (0-2); EOSINOPHILS 4.4 % (0-7); HEMATOCRIT 33.7 % (36.0-48.0); IMMATURE GRANULOCYTES 0.7 % (0-5); LYMPHOCYTES 29.2 % (15-50); MCH 31.3 pg (26.0-34.0); MCHC 32.6 g/dL (31.0-37.0); MCV 95.7 fL (80.0-100.0); MEAN PLATELET VOLUME 10.1 fL (7.4-10.4); MONOCYTES 8.1 % (2-11); PLATELET COUNT 546 10x3/uL (130-400); RBC 3.52 10x6/uL (4.00-5.40); RDW 12.5 % (11.5-14.5); WBC 16.1 10x3/uL (4.8-10.8)
[2019-03-04 05:54] LABS: ALBUMIN 2.2 g/dL (3.4-5.0); ALKALINE PHOSPHATASE 226 U/L (46-116); ALT (SGPT) 212 U/L (10-68); CALCIUM 9.5 mg/dL (8.5-10.1); CARBON DIOXIDE 31.2 mmol/L (21.0-32.0); CHLORIDE - SERUM 98 mmol/L (98-107); CREATININE - SERUM 0.6 mg/dL (0.6-1.3); POTASSIUM - SERUM 4.2 mmol/L (3.5-5.1); PROTEIN - SERUM 7.9 g/dL (6.4-8.2); SODIUM 136 mmol/L (136-145); UREA NITROGEN 19 mg/dL (7-18); eGFR NON AFRICAN AMERICAN > 90 mL/min (90-120)
[2019-03-04 05:55] LABS: BILIRUBIN - TOTAL 0.09 mg/dL (0.2-1.3); CALC OSMOLALITY 275 mosm/kg (275-300); GLUCOSE 139 mg/dL (74-106)
[2019-03-04 08:26] VITALS: BP 129/64
[2019-03-04 12:03] VITALS: BP 125/71
[2019-03-04 16:16] VITALS: BP 120/67
--- NOTE | 2019-03-04 19:20 | NUR ---
RECEIVED UP IN BED WITH EYES OPEN AND TV ON. ALERT AND ORIENTED X4. UP AD ARISTIDES. O2@ 2 LITERS PER N/C. IV TO RIGHT HAND SL.. DENEIES ANY NEEDS AT THIS TIME.
[2019-03-04 20:00] VITALS: BP 132/75
[2019-03-05] VITALS: BP 123/71
[2019-03-05 04:00] VITALS: BP 116/66
[2019-03-05 05:03] LABS: BASOPHILS 0.5 % (0-2); EOSINOPHILS 4.5 % (0-7); HEMOGLOBIN 11.1 g/dL (12-16); IMMATURE GRANULOCYTES 0.7 % (0-5); LYMPHOCYTES 38.4 % (15-50); MCH 31.2 pg (26.0-34.0); MCHC 32.6 g/dL (31.0-37.0); MCV 95.5 fL (80.0-100.0); MEAN PLATELET VOLUME 9.5 fL (7.4-10.4); MONOCYTES 6.9 % (2-11); PLATELET COUNT 571 10x3/uL (130-400); RBC 3.56 10x6/uL (4.00-5.40); RDW 12.3 % (11.5-14.5); WBC 17.5 10x3/uL (4.8-10.8)
[2019-03-05 05:11] LABS: CALC OSMOLALITY 277 mosm/kg (275-300); CARBON DIOXIDE 32.4 mmol/L (21.0-32.0); CHLORIDE - SERUM 99 mmol/L (98-107); CREATININE - SERUM 0.6 mg/dL (0.6-1.3); GLUCOSE 129 mg/dL (74-106); POTASSIUM - SERUM 3.9 mmol/L (3.5-5.1); SODIUM 137 mmol/L (136-145); UREA NITROGEN 17 mg/dL (7-18); eGFR NON AFRICAN AMERICAN > 90 mL/min (90-120)
--- NOTE | 2019-03-05 08:00 | NUR ---
A/A/OX4. SITTING ON SIDE OF BED EATING BREAKFAST WITH NO COMPLAINTS OR REQUESTS VOICED. ASSESSMENT COMPLETED AND WILL CONTINUE POC. IV PATENT TO LEFT FA WITHOUT REDNESS OR EDEMA AT SITE. CALL LIGHT IN REACH AND BED IN LOW POSITION.
[2019-03-05 08:19] VITALS: BP 119/68
[2019-03-05 11:48] VITALS: BP 111/71
--- NOTE | 2019-03-05 14:36 | NUR ---
I have reviewed this patient and I concur with the Shift Assessment completed by the Licensed Practical Nurse today this shift.
[2019-03-05 16:44] VITALS: BP 129/74
--- NOTE | 2019-03-05 19:58 | NUR ---
RECIEVED LAYING IN BED WITH EYES CLOSED. EASILY AROUSES TO VERBAL STIMULI. ORIENTED X4. UP AD ARISTIDES. IV TO LEFT FA SL.. DENIES ANY NEEDS AT THIS TIME.
[2019-03-05 20:00] VITALS: BP 138/78
[2019-03-06] VITALS: BP 123/94
[2019-03-06 05:33] LABS: BASOPHILS 0.4 % (0-2); EOSINOPHILS 4.2 % (0-7); HEMATOCRIT 33.5 % (36.0-48.0); HEMOGLOBIN 11.4 g/dL (12-16); IMMATURE GRANULOCYTES 0.7 % (0-5); LYMPHOCYTES 37.8 % (15-50); MCH 32.9 pg (26.0-34.0); MCV 96.8 fL (80.0-100.0); MEAN PLATELET VOLUME 9.9 fL (7.4-10.4); MONOCYTES 6.2 % (2-11); NEUTROPHILS 50.7 % (40-80); PLATELET COUNT 617 10x3/uL (130-400); RBC 3.46 10x6/uL (4.00-5.40); RDW 12.8 % (11.5-14.5); WBC 14.9 10x3/uL (4.8-10.8)
[2019-03-06 06:00] LABS: CARBON DIOXIDE 31.6 mmol/L (21.0-32.0); CHLORIDE - SERUM 98 mmol/L (98-107); CREATININE - SERUM 0.6 mg/dL (0.6-1.3); SODIUM 136 mmol/L (136-145); UREA NITROGEN 16 mg/dL (7-18); eGFR NON AFRICAN AMERICAN > 90 mL/min (90-120)
[2019-03-06 06:07] LABS: CALC OSMOLALITY 281 mosm/kg (275-300); GLUCOSE 261 mg/dL (74-106); POTASSIUM - SERUM 4.5 mmol/L (3.5-5.1)
--- NOTE | 2019-03-06 07:29 | NUR ---
PT RECEIVED SITTING UP IN BED, COMPLAINTS OF NEUROPATHY TO BLE. PAIN AND NAUSEA MEDS GIVEN.
[2019-03-06 08:41] VITALS: BP 137/81
[2019-03-06 13:18] VITALS: BP 119/60
[2019-03-06 18:10] VITALS: BP 112/63
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
[2019-03-06 20:00] VITALS: BP 123/74
[2019-03-07] VITALS: BP 126/67
[2019-03-07 04:00] VITALS: BP 126/72
[2019-03-07 05:37] LABS: BASOPHILS 0.4 % (0-2); EOSINOPHILS 4.2 % (0-7); HEMATOCRIT 33.4 % (36.0-48.0); HEMOGLOBIN 10.8 g/dL (12-16); IMMATURE GRANULOCYTES 0.8 % (0-5); LYMPHOCYTES 36.9 % (15-50); MCH 31.4 pg (26.0-34.0); MCHC 32.3 g/dL (31.0-37.0); MCV 97.1 fL (80.0-100.0); MEAN PLATELET VOLUME 9.8 fL (7.4-10.4); MONOCYTES 6.2 % (2-11); NEUTROPHILS 51.5 % (40-80); PLATELET COUNT 637 10x3/uL (130-400); RBC 3.44 10x6/uL (4.00-5.40); RDW 12.9 % (11.5-14.5); WBC 16.8 10x3/uL (4.8-10.8)
[2019-03-07 06:38] LABS: CALC OSMOLALITY 279 mosm/kg (275-300); CALCIUM 8.9 mg/dL (8.5-10.1); CARBON DIOXIDE 33.5 mmol/L (21.0-32.0); CHLORIDE - SERUM 100 mmol/L (98-107); CREATININE - SERUM 0.6 mg/dL (0.6-1.3); POTASSIUM - SERUM 4.2 mmol/L (3.5-5.1); SODIUM 138 mmol/L (136-145); UREA NITROGEN 17 mg/dL (7-18); eGFR NON AFRICAN AMERICAN > 90 mL/min (90-120)
[2019-03-07 06:41] LABS: GLUCOSE 137 mg/dL (74-106)
[2019-03-07 07:36] VITALS: BP 125/65
[2019-03-07 11:34] VITALS: BP 129/74
--- NOTE | 2019-03-07 11:40 | NUR ---
Nutrition Follow-up: Eating well. Diet: Renal ADA PO intake: 75-100% Wt: 130# (03/07); 130# (03/02) Last BM: 03/07 Labs noted: Glu 137 Meds noted: Lantus, Humulin, Zofran -May consider liberalizing to low Na carb consistent diet. -RD following.
[2019-03-07] MEDS ORDERED: NICODERM C1 PATCH .1 TRANSDERM (13:45)
[2019-03-07] MEDS ORDERED: NEURONTIN 300300 MG PO (13:45)
[2019-03-07] MEDS ORDERED: NORVASC10 MG PO (13:45)
[2019-03-07] MEDS ORDERED: NOVOLIN 70/30 110 ML SC (13:46)
[2019-03-07] MEDS ORDERED: FLORAJEN3 CAPS460 MG PO (13:46)
[2019-03-07] MEDS ORDERED: OMNICEF300 MG PO (13:46)
[2019-03-07] MEDS ORDERED: BASAGLAR K100 UNIT/1 SC (14:31)
[2019-03-07] MEDS ORDERED: HUMULIN R100 UNIT/1 SC (14:31)
--- NOTE | 2019-03-07 16:07 | MORECARE ---
CASE MANAGEMENT DISCHARGE SUMMARY PATIENT: GILBERT VERA UNIT: [id number] ADM DATE: 02/26/19 AGE: 49 : 74 SEX: F ROOM/BED: D.2338 AUTHOR: SAMEERA,DOC PHYSICIAN: REFERRING PHYSICIAN: JIMMY FARRIS MD DATE OF SERVICE: 03/07/19 Discharge Plan Patient Name: GILBERT VERA Facility: [facility]:[place] : 1970 Planned Disposition: Home Anticipated Discharge Date: Discharge Date: Expected LOS: Initial Reviewer: [id number] Initial Review Date: 02/26/2019 Generated: 03/07/19 5:07 pm Comments DCP- Discharge Planning Updated by [email or web address]: Catalina Arias on 03/07/19 3:[address] Patient Name: GILBERT VERA Admission Status: ER Accout number: [id number] Admission Date: 02-26-2019 : 1970 Admission Diagnosis:TYPE 2 DIABETES MELLITUS WITH HYPERGLYCEMIA Attending: JIMMY FARRIS Current LOS: 9 Anticipated DC Date: Planned Disposition: Home Primary Insurance: MEDICAID [place] PEND[place] Discharge Planning Comments: CM GAVE PATIENT 2 BUS TICKETS AND LIST OF HOMELESS SHELTERS. RN GIVING HER THE INSULIN AND INSTRUCTIONS. 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, THE SUPPLIES HAVE BEEN APPROVED FOR PAYMENT. CM TO FOLLOW. Direct Marketing Analyst: Catalina Arias DCP- Discharge Planning Updated by [email or web address]: Jorge Garza on 02/28/19 11:[address] Patient Name: GILBERT VERA Encounter No: [id number] : 1970 Primary Insurance: MEDICAID [place] PEND[place] Anticipated DC Date: Planned Disposition: Home DCP follow-up note: CM SPOKE TO JOEL CORTEZ, RECEIVED PRESCRIPTION FOR GLUCOSE MONITOR, 1 BOX LANCETS, 1 BOX TESTING STRIPS, 1 BOX ALCOHOL PADS. CHART REVIEWED. PRESCRIPTION PLACED IN FRONT OF PT'S PHYSICAL CHART. CM WILL NEED TO KNOW WHAT TYPE AND QUANTITY OF INSULIN PT WILL REQUIRE TO GET COSTS ESTIMATE FOR SUPERVISORY REVIEW TO DETERMINE IF THE HOSPITAL IS WILLING AND ABLE TO PROVIDE NEEDED MATERIALS FOR DISCHARGE HOME. Direct Marketing Analyst: Jorge Garza DCP- Discharge Planning Updated by [id number]: Jogre Garza on 02/27/19 4:[address] Patient Name: GILBERT VERA Admission Status: ER Accout number: [id number] Admission Date: 02-26-2019 : 1970 Admission Diagnosis:TYPE 2 DIABETES MELLITUS WITH HYPERGLYCEMIA Attending: JIMMY FARRIS Current LOS: 1 Anticipated DC Date: Planned Disposition: Home Primary Insurance: MEDICAID [place] PEND[place] Discharge Planning Comments: CM RECEIVED ORDER THAT PT IS HOMELESS AND NEEDS DIABETIC SUPPLIES FOR DISCHARGE. CM MET WITH PT IN ROOM TO DISCUSS DISCHARGE PLANNING AND NEEDS. PT REPORTS LIVING AT HOME INDEPENDENTLY WITH HER FRIEND WHO PT CARE FOR HER FRIENDS CHILDREN IN THE HOME. PT HAS NO MEDICAL EQUIPMENT AND NO OUTSIDE SERVICES ASSISTING IN THE HOME. CM DISCUSSED AVAILABILITY OF HOME HEALTH, REHAB SERVICES AND MEDICAL EQUIPMENT. PT REPORTS THAT HER DIABETIC SUPPLIES WERE STOLEN AND SHE HAS BEEN WITOUT ANY TESING SUPPLIES FOR 2 MONTHS. PT HAS BEEN USING HER LAST NOVALOG PEN TRYING TO "MAKE IT LAST" LONG POSSIBLE. PT REPORTS SHE THINKS SHE WAS ON NOVALOG PEN AND HUMILIN R VIAL INSULIN. PT STATES SHE HAS NOT MONEY TO BUY HER INSULIN OR SUPPLIES. PT STATES SHE PLANS TO GO TO THE [facility] TO ASK FOR ASSISTANCE IN GETTING SUPPLIES AND INSULIN. PT STATES THE BOARDING HOUSE MANAGER FROM THE [facility] REAPPLIED FOR MEDICAID FOR HER AND IT WILL BE PROCESSED IN ABOUT TWO WEEKS. PT STATES HER FRIEND WILL PICK HER UP FOR DISCHARGE HOME. CM CALLED [facility] IN [place], , THEY ARE OPEN 02-28-19 FROM 8:30AM TO 5:00PM. CM WILL NEED TO KNOW WHAT TYPE AND QUANTITY OF INSULIN PT WILL REQUIRE TO GET COSTS ESTIMATE FOR SUPERVISORY REVIEW. Direct Marketing Analyst: Jorge Garza DCPIA - Discharge Planning Initial Assessment Updated by [email or web address]: Jorge Garza on 02/27/19 5:32 pm * Is the patient Alert and Oriented? Yes * How many steps to enter\\exit or inside your home? * PCP NONE * Pharmacy [facility] * Preadmission Environment Home with Family * ADLs Independent * Equipment None * Other Equipment NO MEDICAL EQUIPMENT PROVIDER PREFERNECE * List name and contact numbers for known caregivers / representatives who currently or will assist patient after discharge: MILLY STERLING, MOTHER, * Verbal permission to speak to the caregivers and representatives has been obtained from the patient. N/A * Community resources currently utilized None * Please name any agencies selected above. NONE * Additional services required to return to the preadmission environment? No * Can the patient safely return to the preadmission environment? Yes * Has this patient been hospitalized within the prior 30 days at any hospital? No Last DP export: 02/28/19 11:25 Patient Name: GILBERT VERA Page 12102 at 1607 All edits/amendments must be made on the electronic document DICTATION DATE: 03/07/191606 FUNCTIONAL SKILLS TUTOR: OCTAVIO 03/07/191606 RPT#: [id number] OK DATE: STATUS: ADM IN [facility] [address] [place] [address] END OF REPORT
--- NOTE | 2019-03-07 16:34 | NUR ---
ALERT AND ORIENTED X4. SITTING UP IN BED. DISCHARGE INSTRUCTIONS GIVEN VERBALLY AND WRITTEN. DISCHARGE PAPERS SIGNED ON CHART. DC LT FA IV TIP INTACT. BUS TICKETS PROVIDED. INSULIN INSTRUCTIONS GIVEN WITH INSULIN AND LANTUS. AMBULATES TO BUS STOP PER PATIENT REQUEST. REMAINS FREE FROM INJURY.
--- NOTE | 2019-03-09 08:52 | MORECARE ---
CASE MANAGEMENT DISCHARGE SUMMARY PATIENT: GILBERT VERA UNIT: [id number] ADM DATE: 02/26/19 AGE: 49 : 74 SEX: F ROOM/BED: D.2813 AUTHOR: SAMEERA,DOC PHYSICIAN: REFERRING PHYSICIAN: JIMMY FARRIS MD DATE OF SERVICE: 03/09/19 Discharge Plan Patient Name: GILBERT VERA Facility: [facility]:[place] : 1970 Planned Disposition: Home Anticipated Discharge Date: 03/07/19 Discharge Date: 03/07/2019 Expected LOS: 9 Initial Reviewer: [id number] Initial Review Date: 02/26/2019 Generated: 03/09/19 9:52 am Comments DCP- Discharge Planning Updated by [id number]: Catalina Arias on 03/07/19 3:[address] Patient Name: GILBERT VERA Admission Status: ER Accout number: [id number] Admission Date: 02-26-2019 : 1970 Admission Diagnosis:TYPE 2 DIABETES MELLITUS WITH HYPERGLYCEMIA Attending: JIMMY FARRIS Current LOS: 9 Anticipated DC Date: Planned Disposition: Home Primary Insurance: MEDICAID [place] PENDING Discharge Planning Comments: CM GAVE PATIENT 2 BUS TICKETS AND LIST OF HOMELESS SHELTERS. RN GIVING HER THE INSULIN AND INSTRUCTIONS. 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, THE SUPPLIES HAVE BEEN APPROVED FOR PAYMENT. CM TO FOLLOW. Ehs Specialist: Catalina Arias DCP- Discharge Planning Updated by [id number]: Jorge Garza on 02/28/19 11:[address] Patient Name: GILBERT EVRA Encounter No: [id number] : 1970 Primary Insurance: MEDICAID [place] PENDING Anticipated DC Date: Planned Disposition: Home DCP follow-up note: CM SPOKE TO JOEL CORTEZ, RECEIVED PRESCRIPTION FOR GLUCOSE MONITOR, 1 BOX LANCETS, 1 BOX TESTING STRIPS, 1 BOX ALCOHOL PADS. CHART REVIEWED. PRESCRIPTION PLACED IN FRONT OF PT'S PHYSICAL CHART. CM WILL NEED TO KNOW WHAT TYPE AND QUANTITY OF INSULIN PT WILL REQUIRE TO GET COSTS ESTIMATE FOR SUPERVISORY REVIEW TO DETERMINE IF THE HOSPITAL IS WILLING AND ABLE TO PROVIDE NEEDED MATERIALS FOR DISCHARGE HOME. Ehs Specialist: Jorge Garza DCP- Discharge Planning Updated by [id number]: Jorge Garza on 02/27/19 4:[address] Patient Name: GILBERT VERA Admission Status: ER Accout number: [id number] Admission Date: 02-26-2019 : 1970 Admission Diagnosis:TYPE 2 DIABETES MELLITUS WITH HYPERGLYCEMIA Attending: JIMMY FARRIS Current LOS: 1 Anticipated DC Date: Planned Disposition: Home Primary Insurance: MED[place]ID [place] PENDING Discharge Planning Comments: CM RECEIVED ORDER THAT PT IS HOMELESS AND NEEDS DIABETIC SUPPLIES FOR DISCHARGE. CM MET WITH PT IN ROOM TO DISCUSS DISCHARGE PLANNING AND NEEDS. PT REPORTS LIVING AT HOME INDEPENDENTLY WITH HER FRIEND WHO PT CARE FOR HER FRIENDS CHILDREN IN THE HOME. PT HAS NO MEDICAL EQUIPMENT AND NO OUTSIDE SERVICES ASSISTING IN THE HOME. CM DISCUSSED AVAILABILITY OF HOME HEALTH, REHAB SERVICES AND MEDICAL EQUIPMENT. PT REPORTS THAT HER DIABETIC SUPPLIES WERE STOLEN AND SHE HAS BEEN WITOUT ANY TESING SUPPLIES FOR 2 MONTHS. PT HAS BEEN USING HER LAST NOVALOG PEN TRYING TO "MAKE IT LAST" LONG POSSIBLE. PT REPORTS SHE THINKS SHE WAS ON NOVALOG PEN AND HUMILIN R VIAL INSULIN. PT STATES SHE HAS NOT MONEY TO BUY HER INSULIN OR SUPPLIES. PT STATES SHE PLANS TO GO TO THE [facility] TO ASK FOR ASSISTANCE IN GETTING SUPPLIES AND INSULIN. PT STATES THE AUDIENCE COORDINATOR FROM THE [facility] REAPPLIED FOR MEDICAID FOR HER AND IT WILL BE PROCESSED IN ABOUT TWO WEEKS. PT STATES HER FRIEND WILL PICK HER UP FOR DISCHARGE HOME. CM CALLED [facility] IN [place], , THEY ARE OPEN 02-28-19 FROM 8:30AM TO 5:00PM. CM WILL NEED TO KNOW WHAT TYPE AND QUANTITY OF INSULIN PT WILL REQUIRE TO GET COSTS ESTIMATE FOR SUPERVISORY REVIEW. Ehs Specialist: Jorge Garza DCPIA - Discharge Planning Initial Assessment Updated by [id number]: Jorge Garza on 02/27/19 5:32 pm * Is the patient Alert and Oriented? Yes * How many steps to enter\\exit or inside your home? * PCP NONE * Pharmacy [facility] * Preadmission Environment Home with Family * ADLs Independent * Equipment None * Other Equipment NO MEDICAL EQUIPMENT PROVIDER PREFERNECE * List name and contact numbers for known caregivers / representatives who currently or will assist patient after discharge: MILLY STERLING, MOTHER, * Verbal permission to speak to the caregivers and representatives has been obtained from the patient. N/A * Community resources currently utilized None * Please name any agencies selected above. NONE * Additional services required to return to the preadmission environment? No * Can the patient safely return to the preadmission environment? Yes * Has this patient been hospitalized within the prior 30 days at any hospital? No Last DP export: 03/07/19 3:07 Patient Name: GILBERT VERA Page 48492 at 0852 All edits/amendments must be made on the electronic document DICTATION DATE: 03/09/19851 GENERAL OFFICE WORKER: OCTAVIO 03/09/19851 RPT#: [id number] DC DATE:03/07/19 STATUS: DIS IN [facility] [address] [place] [address] END OF REPORT
== END 2019-03-07 16:35 | disposition home or self-care (01) | DRG 872 ==
LOC: D.ER 18:39 → D.M2 21:28
PROVIDERS: Emergency Medicine; ADMIT Internal Medicine Nephrology; ATTEND Internal Medicine Nephrology
DX: A41.9 Sepsis, unspecified organism (principal); F17.213 Nicotine dependence, cigarettes, with withdrawal; E87.1 Hypo-osmolality and hyponatremia; N39.0 Urinary tract infection, site not specified; N10 Acute pyelonephritis; E11.40 Type 2 diabetes mellitus with diabetic neuropathy, unspecified; E11.65 Type 2 diabetes mellitus with hyperglycemia; E83.42 Hypomagnesemia; Z59.0 Homelessness; B96.20 Unspecified Escherichia coli [E. coli] as the cause of diseases classified elsewhere

== ENCOUNTER 2019-07-29 10:46 | Emergency (ER) | payer MEDICAID ==
[~2019-07-29] VITALS: Ht 160 cm; Wt 59.1 kg
[~2019-07-29 10:46] MED LIST changes: +BASAGLAR K100 UNIT/1 SC; +HUMULIN R100 UNIT/1 SC; +NEURONTIN 300300 MG PO; +NICODERM C1 PATCH .1 TRANSDERM; +NORVASC10 MG PO; +NOVOLIN 70/30 110 ML SC; +OMNICEF300 MG PO
[2019-07-29 10:54] VITALS: Ht 160 cm; Wt 59.1 kg
[2019-07-29 11:25] LABS: HEMATOCRIT 37.7 % (36.0-48.0); HEMOGLOBIN 12.6 g/dL (12-16); MCH 31.3 pg (26.0-34.0); MCHC 33.4 g/dL (31.0-37.0); MCV 93.5 fL (80.0-100.0); MEAN PLATELET VOLUME 9.4 fL (7.4-10.4); PLATELET COUNT 495 10x3/uL (130-400); RBC 4.03 10x6/uL (4.00-5.40); RDW 12.6 % (11.5-14.5); WBC 20.7 10x3/uL (4.8-10.8)
[2019-07-29 11:32] LABS: CALC OSMOLALITY 280 mosm/kg (275-300); CALCIUM 9.1 mg/dL (8.5-10.1); CARBON DIOXIDE 27.9 mmol/L (21.0-32.0); CHLORIDE - SERUM 99 mmol/L (98-107); CREATININE - SERUM 0.8 mg/dL (0.6-1.3); GLUCOSE 310 mg/dL (74-106); POTASSIUM - SERUM 3.8 mmol/L (3.5-5.1); PROTIME 13.2 SECONDS (11.6-15.0); SODIUM 134 mmol/L (136-145); UREA NITROGEN 14 mg/dL (7-18); eGFR NON AFRICAN AMERICAN 81 mL/min (90-120)
[2019-07-29 11:33] LABS: APTT 30.1 SECONDS (22.8-39.4)
[2019-07-29 11:45] LABS: BILIRUBIN NEGATIVE (NEGATIVE); GLUCOSE 1000 mg/dL (NEGATIVE); KETONE NEGATIVE (NEGATIVE); NITRITE NEGATIVE (NEGATIVE); SPECIFIC GRAVITY 1.015 (1.005-1.020); UROBILINOGEN NORMAL (NORMAL)
[2019-07-29 11:48] LABS: BACTERIA MANY /hpf (NEGATIVE); EPITHELIAL CELLS 0-5 /hpf (0-5); RED CELLS - URINE 0-5 /hpf (0-5)
[2019-07-29 11:48] LABS: ALBUMIN 2.8 g/dL (3.4-5.0); ALKALINE PHOSPHATASE 208 U/L (30-120); ALT (SGPT) 95 U/L (10-68); BILIRUBIN - TOTAL 0.32 mg/dL (0.2-1.3); CREATINE KINASE 51 UL (21-215); MAGNESIUM - SERUM 1.6 mg/dL (1.8-2.4); PROTEIN - SERUM 8.5 g/dL (6.4-8.2); TROPONIN-I < 0.017 ng/mL (0.000-0.060)
[2019-07-29 11:49] LABS: YEAST <1+ /hpf (NONE SEEN)
[2019-07-29 12:01] LABS: EOSINOPHILS 7 % (0-7); LYMPHOCYTES 30 % (15-50); MONOCYTES 2 % (2-11); NEUTROPHILS 61 % (40-80); PLATELET ESTIMATE INCREASED
[2019-07-29 12:02] LABS: STOMATOCYTES OCC
[2019-07-29 15:13] VITALS: BP 178/77
--- NOTE | 2019-07-29 16:42 | NUR ---
PT LEFT WITH [facility] TO [facility].
== END 2019-07-29 15:41 | disposition other institution (70) ==
LOC: D.ER 10:46 → D.MS 14:26
PROVIDERS: Family Medicine
DX: R07.9 Chest pain, unspecified (principal); N30.80 Other cystitis without hematuria; N32.89 Other specified disorders of bladder; D72.829 Elevated white blood cell count, unspecified; N39.0 Urinary tract infection, site not specified; I10 Essential (primary) hypertension; E11.40 Type 2 diabetes mellitus with diabetic neuropathy, unspecified; Z72.0 Tobacco use; G51.0 Bell's palsy

== ENCOUNTER 2019-11-16 16:09 | Emergency (ER) | payer MEDICAID ==
[~2019-11-16] VITALS: Ht 160 cm; Wt 59.1 kg
[2019-11-16 16:18] VITALS: Ht 160 cm; Wt 59.1 kg
[2019-11-16 16:56] LABS: BASOPHILS 0.7 % (0-2); EOSINOPHILS 1.5 % (0-7); HEMATOCRIT 39.1 % (36.0-48.0); HEMOGLOBIN 12.8 g/dL (12-16); IMMATURE GRANULOCYTES 0.2 % (0-5); LYMPHOCYTES 28.4 % (15-50); MCH 30.7 pg (26.0-34.0); MCHC 32.7 g/dL (31.0-37.0); MCV 93.8 fL (80.0-100.0); MEAN PLATELET VOLUME 9.6 fL (7.4-10.4); MONOCYTES 5.1 % (2-11); NEUTROPHILS 64.1 % (40-80); PLATELET COUNT 423 10x3/uL (130-400); RBC 4.17 10x6/uL (4.00-5.40); RDW 13.2 % (11.5-14.5); WBC 14.7 10x3/uL (4.8-10.8)
[2019-11-16 17:13] LABS: ANION GAP 11.9 mmol/L (8-16); CALCIUM 9.1 mg/dL (8.5-10.1); CARBON DIOXIDE 27.5 mmol/L (21.0-32.0); CREATININE - SERUM 1.2 mg/dL (0.6-1.3); POTASSIUM - SERUM 3.4 mmol/L (3.5-5.1)
[2019-11-16 17:19] LABS: BILIRUBIN - TOTAL 0.46 mg/dL (0.2-1.3); PROTEIN - SERUM 3.6 g/dL (6.4-8.2)
[2019-11-16 18:24] LABS: CKMB 1.8 U/L (0.0-3.6); CREATINE KINASE 52 UL (21-215)
[2019-11-16 18:26] LABS: TROPONIN-I < 0.017 ng/mL (0.000-0.060)
[2019-11-16 18:26] LABS: UDS - AMPHET POSITIVE QUAL (NEGATIVE); UDS - BARB NEGATIVE QUAL (NEGATIVE); UDS - BENZO NEGATIVE QUAL (NEGATIVE); UDS - COCAINE NEGATIVE QUAL (NEGATIVE); UDS - OPIATE NEGATIVE QUAL (NEGATIVE); UDS - PCP NEGATIVE QUAL (NEGATIVE); UDS - THC NEGATIVE QUAL (NEGATIVE)
[2019-11-16 18:42] LABS: BILIRUBIN NEGATIVE (NEGATIVE); KETONE SMALL mg/dL (NEGATIVE); NITRITE POSITIVE (NEGATIVE); UROBILINOGEN NORMAL mg/dL (< 2)
[2019-11-16 18:43] LABS: BACTERIA MANY /HPF (NONE SEEN); WHITE CELLS - URINE 25-50 /HPF (0-4)
[2019-11-16] MEDS ORDERED: CIPRO500 MG PO (18:55)
[2019-11-17 00:10] VITALS: BP 125/77
== END 2019-11-17 00:11 | disposition home or self-care (01) ==
LOC: D.ER 16:09
PROVIDERS: Family Medicine
DX: N39.0 Urinary tract infection, site not specified (principal); X30.XXXA Exposure to excessive natural heat, initial encounter; F15.10 Other stimulant abuse, uncomplicated; R53.1 Weakness; R42 Dizziness and giddiness; E11.40 Type 2 diabetes mellitus with diabetic neuropathy, unspecified; Z72.0 Tobacco use; Z79.4 Long term (current) use of insulin

== ENCOUNTER 2020-07-08 13:08 | Emergency (ER) | payer MEDICAID ==
[~2020-07-08] VITALS: Ht 160 cm; Wt 56.8 kg
[~2020-07-08 13:08] MED LIST changes: +CIPRO500 MG PO; +GLUCOTROL 5 MG T5 MG PO; +LANTUS INS100 UNITS/ SC; +MUCINEX600 MG PO; +NICODERM CQ1 EAC2 TRANSDERM; +TESSALON PERLE100 MG PO; +ZITHROMAX500 MG PO
[2020-07-08 13:10] VITALS: BP 129/88; Ht 160 cm; Wt 56.8 kg
[2020-07-08 13:29] LABS: BASOPHILS 0.6 % (0-2); EOSINOPHILS 2.4 % (0-7); HEMATOCRIT 38.2 % (36.0-48.0); HEMOGLOBIN 12.7 g/dL (12-16); IMMATURE GRANULOCYTES 0.3 % (0-5); LYMPHOCYTES 38.2 % (15-50); MCH 30.6 pg (26.0-34.0); MCHC 33.2 g/dL (31.0-37.0); MEAN PLATELET VOLUME 10.3 fL (7.4-10.4); MONOCYTES 4.9 % (2-11); NEUTROPHIL ABS# 6.71 10x3/uL (1.56-6.13); NEUTROPHILS 53.6 % (40-80); PLATELET COUNT 425 10x3/uL (130-400); RBC 4.15 10x6/uL (4.00-5.40); RDW 12.9 % (11.5-14.5); WBC 12.6 10x3/uL (4.8-10.8)
[2020-07-08 13:54] LABS: ALBUMIN 2.6 g/dL (3.4-5.0); ANION GAP 13.9 mmol/L (8-16); BILIRUBIN - TOTAL 0.57 mg/dL (0.2-1.3); CALCIUM 9.1 mg/dL (8.5-10.1); POTASSIUM - SERUM 4.9 mmol/L (3.5-5.1); PROTEIN - SERUM 7.4 g/dL (6.4-8.2)
== END 2020-07-08 14:51 | disposition home or self-care (01) ==
LOC: D.ER 13:08
PROVIDERS: Emergency Medicine
DX: E11.65 Type 2 diabetes mellitus with hyperglycemia (principal); K21.9 Gastro-esophageal reflux disease without esophagitis; E11.40 Type 2 diabetes mellitus with diabetic neuropathy, unspecified; Z79.84 Long term (current) use of oral hypoglycemic drugs

== ENCOUNTER 2020-08-04 16:46 | Inpatient (IN) | payer MEDICAID ==
[~2020-08-04] VITALS: Ht 160 cm; Wt 56.0 kg
[2020-08-04 18:13] LABS: BASOPHILS 2.5 % (0-2); EOSINOPHILS 3.1 % (0-7); HEMATOCRIT 42.8 % (36.0-48.0); HEMOGLOBIN 14.1 g/dL (12-16); LYMPHOCYTES 42.3 % (15-50); MCH 30.4 pg (26.0-34.0); MCHC 33.1 g/dL (31.0-37.0); MCV 91.9 fL (80.0-100.0); MEAN PLATELET VOLUME 8.1 fL (7.4-10.4); MONOCYTES 4.4 % (2-11); NEUTROPHILS 47.7 % (40-80); RBC 4.65 10x6/uL (4.00-5.40); RDW 12.9 % (11.5-14.5); WBC 13.7 10x3/uL (4.8-10.8)
[2020-08-04 18:14] LABS: PLATELET COUNT 528 10x3/uL (130-400)
[2020-08-04 18:30] LABS: CALC OSMOLALITY 290 mosm/kg (275-300); CALCIUM 9.2 mg/dL (8.5-10.1); CARBON DIOXIDE 33.1 mmol/L (21.0-32.0); CHLORIDE - SERUM 101 mmol/L (98-107); CREATININE - SERUM 0.8 mg/dL (0.6-1.3); POTASSIUM - SERUM 3.7 mmol/L (3.5-5.1); SODIUM 140 mmol/L (136-145); UREA NITROGEN 11 mg/dL (7-18); eGFR NON AFRICAN AMERICAN 81 mL/min (90-120)
[2020-08-04 18:36] LABS: ALBUMIN 2.4 g/dL (3.4-5.0); ALKALINE PHOSPHATASE 153 U/L (30-120); ALT (SGPT) 106 U/L (10-68); BILIRUBIN - TOTAL 0.31 mg/dL (0.2-1.3); PROTEIN - SERUM 7.9 g/dL (6.4-8.2)
[2020-08-04 18:40] LABS: GLUCOSE 330 mg/dL (74-106)
[2020-08-04 18:51] LABS: AMYLASE - SERUM 36 U/L (25-115); LIPASE 134 U/L (73-393)
[2020-08-04 23:05] VITALS: BP 131/70
--- NOTE | 2020-08-04 23:14 | NUR ---
METRONIDIAZOLE 500MG/100ML STARTED 2200 FINISHED 2300.
[2020-08-05 00:27] VITALS: BP 149/71
[2020-08-05 02:44] LABS: BILIRUBIN NEGATIVE (NEGATIVE); KETONE NEGATIVE (NEGATIVE); NITRITE NEGATIVE (NEGATIVE); UROBILINOGEN NORMAL mg/dL (< 2)
[2020-08-05 04:55] VITALS: BP 132/78
[2020-08-05 06:55] LABS: HEMOGLOBIN 11.4 g/dL (12-16); MCH 30.8 pg (26.0-34.0); MCHC 33.3 g/dL (31.0-37.0); MCV 92.3 fL (80.0-100.0); MEAN PLATELET VOLUME 8.5 fL (7.4-10.4); PLATELET COUNT 447 10x3/uL (130-400); WBC 14.3 10x3/uL (4.8-10.8)
[2020-08-05 07:20] LABS: HEMATOCRIT 34.2 % (36.0-48.0); RBC 3.71 10x6/uL (4.00-5.40)
[2020-08-05 07:41] LABS: ALKALINE PHOSPHATASE 156 U/L (30-120); ALT (SGPT) 82 U/L (10-68); BILIRUBIN - TOTAL 0.13 mg/dL (0.2-1.3); CALCIUM 8.5 mg/dL (8.5-10.1); CARBON DIOXIDE 28.7 mmol/L (21.0-32.0); CHLORIDE - SERUM 100 mmol/L (98-107); CREATININE - SERUM 0.7 mg/dL (0.6-1.3); POTASSIUM - SERUM 3.8 mmol/L (3.5-5.1); PROTEIN - SERUM 6.7 g/dL (6.4-8.2); SODIUM 136 mmol/L (136-145); eGFR NON AFRICAN AMERICAN > 90 mL/min (90-120)
[2020-08-05 07:48] LABS: EOSINOPHILS 4 % (0-7); LYMPHOCYTES 60 % (15-50); MONOCYTES 1 % (2-11); NEUTROPHILS 35 % (40-80); PLATELET ESTIMATE INCREASED
[2020-08-05 07:50] LABS: CALC OSMOLALITY 280 mosm/kg (275-300); GLUCOSE 234 mg/dL (74-106); UREA NITROGEN 14 mg/dL (7-18)
[2020-08-05 11:30] VITALS: BP 154/85
[2020-08-05 11:53] VITALS: BMI 21.8
[2020-08-05 16:00] VITALS: BP 163/79
--- NOTE | 2020-08-05 19:30 | NUR ---
PT IN BED, AAO X 3, RESP EVEN AND UNLABORED, NO DISTRESS NOTED, CL IN REACH, SR UP X 2.
[2020-08-05 20:00] VITALS: BP 155/87
[2020-08-05 22:08] VITALS: Ht 160 cm; Wt 56.0 kg
[2020-08-06] VITALS: BP 165/89
[2020-08-06 01:49] LABS: UDS - AMPHET NEGATIVE QUAL (NEGATIVE); UDS - BARB NEGATIVE QUAL (NEGATIVE); UDS - BENZO NEGATIVE QUAL (NEGATIVE); UDS - COCAINE NEGATIVE QUAL (NEGATIVE); UDS - OPIATE NEGATIVE QUAL (NEGATIVE); UDS - PCP NEGATIVE QUAL (NEGATIVE); UDS - THC NEGATIVE QUAL (NEGATIVE)
[2020-08-06 04:00] VITALS: BP 161/86
--- NOTE | 2020-08-06 04:36 | NUR ---
I have reviewed this patient and I concur with the Shift Assessment completed by the Licensed Practical Nurse today this shift.
[2020-08-06 05:49] LABS: BASOPHILS 1.4 % (0-2); EOSINOPHILS 3.1 % (0-7); HEMATOCRIT 32.6 % (36.0-48.0); HEMOGLOBIN 10.8 g/dL (12-16); LYMPHOCYTES 48.8 % (15-50); MCH 30.4 pg (26.0-34.0); MCHC 33.2 g/dL (31.0-37.0); MCV 91.6 fL (80.0-100.0); MEAN PLATELET VOLUME 8.1 fL (7.4-10.4); MONOCYTES 6.7 % (2-11); PLATELET COUNT 439 10x3/uL (130-400); RBC 3.56 10x6/uL (4.00-5.40); RDW 12.7 % (11.5-14.5); WBC 15.4 10x3/uL (4.8-10.8)
[2020-08-06 06:01] LABS: ALBUMIN 1.9 g/dL (3.4-5.0); ANION GAP 8.9 mmol/L (8-16); BILIRUBIN - TOTAL 0.11 mg/dL (0.2-1.3); CARBON DIOXIDE 30.6 mmol/L (21.0-32.0)
[2020-08-06 06:02] LABS: POTASSIUM - SERUM 4.5 mmol/L (3.5-5.1)
[2020-08-06 08:39] VITALS: BP 90/49
[2020-08-06 09:54] LABS: % SATURATION 36 % (15-55); IRON 93 ug/dl (35-150); TOTAL IRON BIND CAPACITY 257 ug/dl (260-445); UNSAT IRON BIND CAPACITY 164 ug/dl (150-375)
[2020-08-06 13:38] VITALS: BP 179/94
[2020-08-06 16:30] VITALS: BP 130/70
--- NOTE | 2020-08-06 19:30 | NUR ---
PT IN BED, AAO X 3, RESP EVEN AND UNLABORED, NO DISTRESS NOTED, CL IN REACH, SR UP X 2.
[2020-08-06 20:33] VITALS: BP 164/77
[2020-08-07] VITALS (7 sets, daily range): BP systolic 116–152; BP diastolic 56–82
--- NOTE | 2020-08-07 02:59 | NUR ---
I have reviewed this patient and I concur with the Shift Assessment completed by the Licensed Practical Nurse today this shift.
[2020-08-07 10:32] LABS: EOSINOPHILS 2.7 % (0-7); HEMATOCRIT 34.4 % (36.0-48.0); HEMOGLOBIN 11.4 g/dL (12-16); LYMPHOCYTES 41.7 % (15-50); MCH 30.7 pg (26.0-34.0); MCHC 33.1 g/dL (31.0-37.0); MCV 92.6 fL (80.0-100.0); MEAN PLATELET VOLUME 7.7 fL (7.4-10.4); MONOCYTES 5.9 % (2-11); NEUTROPHILS 48.7 % (40-80); PLATELET COUNT 445 10x3/uL (130-400); RBC 3.72 10x6/uL (4.00-5.40); RDW 13.2 % (11.5-14.5); WBC 16.5 10x3/uL (4.8-10.8)
[2020-08-07 10:36] LABS: CALC OSMOLALITY 282 mosm/kg (275-300); CALCIUM 8.8 mg/dL (8.5-10.1); CARBON DIOXIDE 30.7 mmol/L (21.0-32.0); CHLORIDE - SERUM 104 mmol/L (98-107); CREATININE - SERUM 0.8 mg/dL (0.6-1.3); GLUCOSE 229 mg/dL (74-106); POTASSIUM - SERUM 5.1 mmol/L (3.5-5.1); SODIUM 137 mmol/L (136-145); UREA NITROGEN 18 mg/dL (7-18); eGFR NON AFRICAN AMERICAN 81 mL/min (90-120)
--- NOTE | 2020-08-07 13:22 | NUR ---
Nutrition Consult/Reassessment: Good appetite/PO intake. Denies N/V. Reports diarrhea less frequent. GI consult pending. No questions re: diet. Diet: Diabetic No PO intake recorded No new wt; last wt: 120# (08/05) Labs noted: Glu 229 Meds noted: Glucotrol, Lantus, Humulin, Florastor, Fibercon Nutrition Diagnosis: -Altered nutrition-related lab values R/T DM AEB elev Glu. Nutrition Goals: -PO intake >=75% avg of meals/snacks. -Meet est fluid needs. -Stable wt. -Glu at or near normal. Nutrition Intervention: -Nutrition needs unchanged since initial assessment; no new wt available. -Monitor wt. -RD will follow up within 5-7 days.
--- NOTE | 2020-08-07 19:30 | NUR ---
PT IN BED, AAO X 3, RESP EVEN AND UNLABORED, NO DISTRESS NOTED, CL IN REACH, SR UP X 2.
--- NOTE | 2020-08-08 04:47 | NUR ---
I have reviewed this patient and I concur with the Shift Assessment completed by the Licensed Practical Nurse today this shift.
[2020-08-08 04:57] VITALS: BP 142/80
[2020-08-08 07:30] VITALS: BP 103/81
[2020-08-08] MEDS ORDERED: LANTUS SOL100 UNIT/2 SC (10:37)
[2020-08-08 11:05] VITALS: BP 151/68
[2020-08-08 13:13] LABS: HEPATITIS C ANTIBODY >11.0 S/CO RAT (0.0-0.9)
[2020-08-08 16:04] VITALS: BP 150/64
[2020-08-12 16:09] LABS: HCVGENO - HEP C QUANT 7270000 IU/mL (()); HCVGENO - LOG 10 6.862 (())
== END 2020-08-08 16:06 | disposition home or self-care (01) | DRG 74 ==
LOC: D.ER 16:46 → D.EDHOLD 21:21 → D.M2 21:21
PROVIDERS: Family Medicine; Legal Medicine; ADMIT Emergency Medicine; ATTEND Emergency Medicine
DX: E11.43 Type 2 diabetes mellitus with diabetic autonomic (poly)neuropathy (principal); F17.203 Nicotine dependence unspecified, with withdrawal; K31.84 Gastroparesis; Z79.84 Long term (current) use of oral hypoglycemic drugs; E11.40 Type 2 diabetes mellitus with diabetic neuropathy, unspecified; Z59.0 Homelessness; E11.65 Type 2 diabetes mellitus with hyperglycemia; Z72.0 Tobacco use; D64.9 Anemia, unspecified; Z86.19 Personal history of other infectious and parasitic diseases; K21.9 Gastro-esophageal reflux disease without esophagitis